=== PATIENT | female | born 1995 | race Caucasian/White ===

== ENCOUNTER 2025-01-30 22:41 | Emergency (ER) | payer MEDICAID, SELFPAY ==
--- OUTSIDE RECORDS SUMMARY | 2025-01-14 14:45 | XMS_ITS | Encounter Summary ---
Author Organization [facility] Address [address] [place] [address] Care Team Providers Care Sports Management Internship Name Role Phone Donya Carson MD Unavailable [phone] Ruben Case MD Unavailable [phone] Swathi Palmer MD Unavailable [phone] Regina Jones MD Primary Care Provid er Regina Jones MD Unavailable [phone] Reason for Visit * Reason Comments Follow Up Encounter Details Date Type Department Care Team (Late st Contact Info) Description 01/14/2025 2:45 PM CDT Office Visit [facility] [address] [place] [address] Ruben Case MD [address] [place] [address] Vaginal irritation (Primary Dx) Social History Tobacco Use Types Packs/Day Years Used Date Smoking Tobacco: Former Cigarettes 0.2 5 Vaping Device Passive Smoke Exposure: Never Smokeless Tobacco: Former Quit: 01/13/2017 Alcohol Use Standard Drinks/Week Comments Not Currently 0 (1 standard drink = 0.6 oz pur e alcohol) 5 drinks per year PHQ-2 Answer Date Recorded PHQ-2 Score 0 11/25/2024 Pinewood Depression Scale Answer Date Recorded Pinewood Depression Score 0 12/05/2018 Last EPDS Self Harm Result Not on file 12/05 Adolescent Education Answer Date Record ed Getting School Help Needed Not on file 03/10 Food Insecurity Answer Date Recorded Within the past 12 months, d id you worry that your food would run out before you got money to buy more? No 09/05/2024 Within the past 12 months, d id the food you bought just not last and you didn t have money to get more? No 09/05/2024 Housing Stability Answer Date Recorded Do you have housing? (Talisha g is defined as stable permanent housing and does not include staying outside in a car, in a tent, in an abandoned building, in an overnight long-term, or couch-surfing.) Yes 09/05/2024 Are you worried about losing your housing? No 09/05/2024 Financial Resource Strain Answer Date R ecorded Within the past 12 months, h ave you or your family members you live with been unable to get utilities (heat, electricity) when it was really needed? No 09/05/2024 Transportation Needs Answer Date Record ed Within the past 12 months, h as lack of transportation kept you from medical appointments, getting your medicines, non-medical meetings or appointments, work, or from getting things that you need? No 09/05/2024 Interpersonal Safety Answer Date Record ed Do you feel physically and e motionally safe where you currently live? Yes 09/05/2024 Within the past 12 months, h ave you been hit, slapped, kicked or otherwise physically hurt by someone? No 09/05/2024 Within the past 12 months, h ave you been humiliated or emotionally abused in other ways by your partner or ex-partner? 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 Not on file Not on file Not on file documented as of this encounter Last Filed Vital Signs Vital Sign Reading Time Taken Comments Blood Pressure 106/74 01/14/2025 2:28 PM CDT Pulse - - Temperature - - Respiratory Rate - - Oxygen Saturation - - Inhaled Oxygen Concentration - - Weight 69.4 kg (153 lb) 01/14/2025 2:28 PM CDT Height - - Body Mass Index 24.14 11/25/2024 11:13 AM CDT documented in this encounter Progress Notes * Ruben Case MD - 01/14/2025 2:45 PM CDT Chief Complaint Patient presents with Follow Up Subjective: 29-year-old G5, P3 here for evaluation of vaginal discharge and irregular cycles. She had a twin that unfortunately ended in August 2024 due to advanced cervical dilation and extreme prematurity at 19 weeks 5 days. They are hoping to conceive again. Her last menstrual period was somewhat atypical with 5 days of spotting followed by heavier bleeding which began December 30. She is wondering if we should check some hormone levels to determine whether she is ovulating again as they hope to conceive. She has also had some ongoing vaginal discharge and has a history of BV so would like this evaluated. REVIEW OF SYSTEMS: General: as above Health Maintenance Topic Date Due ASTHMA ACTION PLAN Never done YEARLY PREVENTIVE VISIT Never done PNEUMOCOCCAL VACCINE: PEDIATRICS (0 to 5 YEARS) AND AT-RISK PATIENTS (6 to 49 YEARS) (1 of 2 - PCV)Never done HEPATITIS B VACCINE (1 of 3 - 19+ 3-dose series) Never done COVID-19 VACCINE ( - season) Never done INFLUENZA VACCINE (1) 02/17/2025 ASTHMA CONTROL TEST 05/27/2025 PHQ-9 05/27/2025 PAP 06/26/2027 ADVANCE CARE PLANNING 11/26/2028 DTAP/TDAP/TD VACCINE (4 - Td or Tdap) 02/19/2030 ZOSTER VACCINE (1 of 2) 2046 HEPATITIS C SCREENING Completed HIV SCREENING Completed DEPRESSION ACTION PLAN Completed HPV VACCINE (No Doses Required) Completed MENINGITIS VACCINE Aged Out CHLAMYDIA SCREENING Discontinued Allergies Allergen Reactions Bees Anaphylaxis Latex Hives, Itching and Rash Objective: Vitals: BP 106/74 Wt 69.4 kg (153 lb) LMP 11/01/2024 BMI 24.14 kg/m?? BMI= Body mass index is 24.14 kg/m??. External genitalia without lesions. Vagina contains a somewhat watery discharge. Wet prep obtained and GC chlamydia PCR obtained. Cervix has a normal multiparous appearance. Assessment/Plan: 1. Vaginal irritation (Primary) Will check - Wet prep - Clinic Collect - NEISSERIA GONORRHOEA PCR - CHLAMYDIA TRACHOMATIS PCR - Follicle stimulating hormone; Future - Estradiol; Future - Progesterone; Future Some hormone levels to confirm ovulatory status Fahad Case MD documented in this encounter Nursing Notes * Nadeen Silva CMA - 01/14/2025 2:45 PM CDT Chief Complaint Patient presents with Follow Up initial BP 106/74 Wt 69.4 kg (153 lb) LMP 11/01/2024 BMI 24.14 kg/m?? Estimated body mass index is 24.14 kg/m?? as calculated from the following: Height as of 11/25/24: 1.695 m (5' 6.75). Weight as of this encounter: 69.4 kg (153 lb). BP completed using cuff size regular Nadeen Silva CMA on 01/14/2025 at 2:36 PM documented in this encounter Plan of Treatment Not on file documented as of this encounter Goals Goal Patient Goal Type Associated Problems Recent Progress Patient-Stated? Author FANNY ECC SURG ENROLL Care Plan MyC ECC SURG ENROLL No Aure Rodriguez documented as of this encounter Procedures Procedure Name Priority Date/Time Associated Diagnosis Comments PROGESTERONE Routine 01/14/2025 2:58 PM CDT Vaginal irritation FOLLICLE STIMULATING HORMONE Routine 01/14/2025 2:58 PM CDT Vaginal irritation ESTRADIOL Routine 01/14/2025 2:58 PM CDT Vaginal irritation WET PREPARATION Routine 01/14/2025 2:49 PM CDT Vaginal irritation NEISSERIA GONORRHOEAE PCR Routine 01/14/2025 2:49 PM CDT Vaginal irritation CHLAMYDIA TRACHOMATIS PCR Routine 01/14/2025 2:49 PM CDT Vaginal irritation documented in this encounter Results * Progesterone (01/14/2025 2:58 PM CDT) Progesterone 0.2 ng/mL 01/14/2025 9:29 PM CDT [facility] Comment: Healthy Postmenopausal Women: Postmenopause: <=0.1 ng/mL Healthy Women: 1st Trimester: 11.0-44.3 ng/mL 2nd Trimester: 25.4-83.4 ng/mL 3rd Trimester: 58.7-214.0 ng/mL Healthy Women Cycle Phase: Follicular: <0.1-0.2 ng/mL Ovulation: 0.1-4.1 ng/mL Luteal: 4.1-14.5 ng/mL Healthy Women Cycle Sub Phase: Early Follicular: <0.1-0.3 ng/mL Intermediate Follicular: <0.1-0.2 ng/mL Late Follicular: <0.1-0.2 ng/mL Ovulation: <0.1-2.4 ng/mL Early Luteal: 2.4-15.1 ng/mL Intermediate Luteal: 4.8-20.9 ng/mL Late Luteal: 0.5-13.5 ng/mL Blood BLOOD SPECIMEN / Unknown Venipuncture / Unknown 01/14/2025 2:58 PM CDT 01/14/2025 2:58 PM CDT us Ruben Case MD LAB - BLOOD ORDERABLES Final Result [facility] Core Lab [address] [facility], Room [address] [place] [phone] * Estradiol (01/14/2025 2:58 PM CDT) Estradiol 51 pg/mL 01/14/2025 9:29 PM CDT [facility] Comment: Healthy Men: 11.3-43.2 pg/mL Healthy Postmenopausal Women: Postmenopause: <5-138 pg/mL Healthy Women: 1st trimester: 154-3243 pg/mL 2nd trimester: 1561-56141 pg/mL 3rd trimester: 8525->58974 pg/mL Healthy Women Cycle Phase: Follicular: 30.9-90.4 pg/mL Ovulation: 60.4-533 pg/mL Luteal: 60.4-232 pg/mL Healthy Women Cycle Sub-Phase: Early Follicular: 20.5-62.8 pg/mL Intermediate Follicular: 26-79.8 pg/mL Late Follicular: 49.5-233 pg/mL Ovulation: 60.4-602 pg/mL Early Luteal: 51.1-179 pg/mL Intermediate Luteal: 66.5-305 pg/mL Late Luteal: 30.2-222 pg/mL Blood BLOOD SPECIMEN / Unknown Venipuncture / Unknown 01/14/2025 2:58 PM CDT 01/14/2025 2:58 PM CDT Ruben Case MD LAB - BLOOD ORDERABLES Final Result Performing Organization Address City/[facility]/ZIP Co de Phone Number LABORATORY [facility] [place] Core Lab [address] [facility], [address] [place] [phone] * Follicle stimulating hormone (01/14/2025 2:58 PM CDT) FSH 5.4 mIU/mL 01/14/2025 9:29 PM CDT LABORATORY Comment: 19 years and older: Follicular phase: 3.5-12.5 mIU/mL Ovulation phase: 4.7-21.5 mIU/mL Luteal phase: 1.7-7.7 mIU/mL Postmenopause: 25.8-134.8 mIU/mL Blood BLOOD SPECIMEN / Unknown Venipuncture / Unknown 01/14/2025 2:58 PM CDT 01/14/2025 2:58 PM CDT Ruben Case MD LAB - BLOOD ORDERABLES Final Result LABORATORY [facility] [place] Core Lab [address] [facility], [address] [phone] * CHLAMYDIA TRACHOMATIS PCR (01/14/2025 2:49 PM CDT) Chlamydia trachomatis Negative Negative 01/15/2025 11:53 AM CDT [facility] Comment:A negative result by chief of anesthesiology mediated amplification does not preclude the presence of C. trachomatis infection because results are dependent on proper and adequate collection, absence of inhibitors and sufficient rRNA to be detected. Chlamydia trachomatis Specimen Source Cervix 01/15/2025 11:53 AM CDT [facility] Swab CERVIX UTERI STRUCTURE / Unknown Non-blood Collection / Unknown 01/14/2025 2:49 PM CDT 01/14/2025 2:52 PM CDT Ruben Case MD LAB - MICRO GENERAL OR DERABLES Final Result Performing Organization Address [facility] de Phone Number U ID LABORATORY [facility] Inf. Diseases Diag. Lab [address] [facility], [address] [place] [phone] [place] [address] * NEISSERIA GONORRHOEA PCR (01/14/2025 2:49 PM CDT) [facility] Neisseria gonorrhoeae Negative Negative 01/15/2025 11:53 AM CDT [facility] Comment:Negative for N. gono rrhoeae rRNA by chief of anesthesiology mediated amplification. A negative result by chief of anesthesiology mediated amplification does not preclude the presence of C. trachomatis infection because results are dependent on proper and adequate collection, absence of inhibitors and sufficient rRNA to be detected. Neisseria gonorrhoeae Specimen Source Cervix 01/15/2025 11:53 AM CDT [facility] Swab CERVIX UTERI STRUCTURE / Unknown Non-blood Collection / Unknown 01/14/2025 2:49 PM CDT 01/14/2025 2:52 PM CDT Ruben Case MD LAB - MICRO GENERAL OR DERABLES Final Result Performing Organization Address City/[facility] Co de Phone Number ID LABORATORY [facility] Inf. Diseases Diag. Lab [address] [facility], [address] [place] [phone] [place] [address] * (ABNORMAL) Wet prep - Clinic Collect (01/14/2025 2:49 PM CDT) Trichomonas Absent Absent MALICK 01/14/2025 3:03 PM CDT [facility] Yeast Absent Absent MALICK 01/14/2025 3:03 PM CDT [facility] Clue Cells Absent Absent MALICK 01/14/2025 3:03 PM CDT [facility] WBCs/high power field 2+(A) None MALICK 01/14/2025 3:03 PM CDT [facility] Swab VAGINAL STRUCTURE / Unknown Non-blood Collection / Unknown 01/14/2025 2:49 PM CDT 01/14/2025 2:52 PM CDT Ruben Case MD LAB - MICRO GENERAL OR DERABLES Final Result [place] [facility] [place] [facility] [address], [address] [place] [address] documented in this encounter Visit Diagnoses Diagnosis Vaginal irritation- Primary Unspecified noninflammatory disorder of vagina documented in this encounter Additional Health Concerns Active Problems Noted Date Diagnosed Date MyC ECC SURG ENROLL 11/24/2023 Assessment Noted Time PHQ-9 Depression Total Score: 0 11/26/19 25 11:19 AM CDT documented as of this encounter Care Teams Sports Management Internship Relationship Specialty [place] [address] [place] [address] PCP - General Internal Medicine 11/25/24 Donya Carson MD [address] [place] [address] machine driller 11/01/23 Ruben Case MD [address] [place] [address] Assigned OBGYN Provider 12/10/23 Swathi Palmer MD [address] [place] [address] Assigned Pediatric Specialist Provider 08/11/24 Regina Jones MD [address] [place] [address] Assigned PCP 12/09/24 documented as of this encounter
--- OUTSIDE RECORDS SUMMARY | 2025-01-30 22:43 | XMS_ITS | Continuity of Care Document ---
Author Name [facility] Organization [facility] Care Team Providers Care Supervisor Polishing Name Role Phone [facility] Unavailable Unavailable Problems Combined list of problems from Department of Defense and Veterans Affairs facilities. It does not include entries that were removed or entered in error. Problem Status Onset Date Problem Type Date of Resolution Comme nts Source Adjustment disorder with other symptoms Active Condition [facility] ALLERGIC RHINITIS Active Condition DoD ASTIGMATISM - REGULAR Active Condition DoD Allergies, Adverse Reactions, Alerts Combined list of allergies from Department of Defense and Veterans Affairs facilities. It does not include entries that were removed or entered in error. Substance Category Reaction Severity Reaction type Status Date Reported Comments Source OTHER {Cla } Drug allergy (disorder) Anaphylaxis active 10/09/2014 [facility] [place] Encounters Combined list of: 1) Encounters from Department of Veterans Affairs facilities going backup to the last 18 months, not all [place] inpatient encounters are included; 2) Encounters from the Department of Defense facilities going backup to 280 months. Location Location Details Encounter Type Encounter Number Reason For Visit Attending Provider ADM Date DC Date Status Disposition Source [place] [facility] [place] OUTPATIENT [id number] faintin g x3 days MELODY CHRIS 09/08 Released w/o Limitations [facility] [place] [facility] [facility] [place] [id number] F/U from previou s appt MELODY CHRIS 09/10 Released w/o Limitations [facility] [place] [facility] [place] [id number] pink eye F/U SARAH VENTURA 09/16 Released w/o Limitations [facility] [place] [facility] [place] [place] [id number] routine UPSURYA GIL 10/09 Released w/o Limitations [place] [facility] [place] [facility] [place] [id number] Notes Entered by: Ashvin GLAE 23 Oct 2014 1143 ------- ------- ------- ------- -- mental health MAGDA Anderson 10/23 Released w/o Limitations [place] [facility] [place] [facility] [place] [facility] [id number] Notes Entered by: Pérez LIU 29 Oct 2014 1409 ------- ------- ------- ------- -- F/U ALINA THOMAS 10/29 Released w/o Limitations [place] [facility] [place] [facility] [facility] [place] [id number] headach e,cough , nasal dischar ge x3 weeks SARAH VENTURA 12/03 Released w/o Limitations [place] [facility] [place] [facility] [facility] [place] [facility] TELE CONSULT [id number] Notes Entered by: MALICK RYAN 05 Mar 2015 1040 ------- ------- ------- ------- -- Out of state Urgent Care VIV Clay 03/05 Referred for Appointment [place] [facility] [facility] [place] [id number] F/U SARAH VENTURA 05/12 Released w/o Limitations [place] [facility] [place] [facility] [facility] [place] [id number] Notes Entered by: Eren THOMAS 12 May 2015 1536 ------- ------- ------- ------- -- Check ALINA THOMAS 05/12 Released w/o Limitations [place] [facility] [facility] [place] TELE CONS[place] [id number] Notes Entered by: STACY NICOLE 13 May 2015 0838 ------- ------- ------- ------- -- VIV [place] 05/13 [place] for Appointment [place] [facility] [place] [facility] [facility] [place] TELE CONS[place] [id number] Notes Entered by: STACY NICOLE 19 May 2015 1344 ------- ------- ------- ------- -- VIV [place] 05/19 [place] for Appointment [place] [facility] [facility] [place] [id number] N/V/D JACOB ZEPEDA 05/25 Released w/o Limitations [place] [facility] [place] [facility] [place] [id number] f/u nvd JACOB ZEPEDA 05/26 Released w/o Limitations [place] [facility] [place] Procedures Combined list of: 1) Procedures from Department of Veterans Affairs facilities going back up to thelast 18 months, not all VA non-surgical procedures are included; 2) All procedures from the Department of Defense facilities. Procedure Procedure Type Code Date Perfomer Comments José Antonio guzman Dr. Supervised Injection Intramuscular Supervised Injection Intramuscular 51241 ABDOUL MILAN Ceftriaxone 250 MG Reconstituted with 1cc Lidicaine w/out Epi. Given IM in Left Glute with 25 Guage. [id number] Puneet Manrique Supervised Injection Intravenous Supervised Injection Intravenous 20063 JACOB CHAVIRA Intravenous Catheter Placement Intravenous Catheter Placement 04512 JACOB ZEPEDA [facility] Psychiatric Therapy Individual Approximately 20-30 Minutes ALINA THOMAS [facility] Psychiatric Therapy Individual Approximately 20-30 Minutes ALINA THOMAS [facility] Ophthalmological New Patient Start Comprehensive Care Ophthalmological New Patient Start Comprehensive Care [address] SURYA HERNANDEZ [facility] Determination Of Refractive State Determination Of Refractive State [address] SURYA HERNANDEZ [facility] Social History Combined list of available smoking, tobacco, and other social history from Department of Defense and Veterans Affairs facilities. Social History Type Response Date Comment [facility] e This section is an empty social history section. DoD
--- OUTSIDE RECORDS SUMMARY | 2025-01-30 22:43 | XMS_ITS | Continuity of Care Document ---
Author Name [facility] Organization [facility] Care Team Providers Care Mba Internship Name Role Phone [facility] Unavailable Unavailable Problems Combined list of problems from Department of Defense and Veterans Affairs facilities. It does not include entries that were removed or entered in error. Problem Status Onset Date Problem Type Date of Resolution Comme nts Source Adjustment disorder with other symptoms Active Condition [facility] ALLERGIC RHINITIS Active Condition DoD ASTIGMATISM - [...] to the last 18 months, not all [place] inpatient encounters are included; 2) Encounters from the Department of Defense facilities going backup to 280 months. Location Location Details Encounter Type Encounter Number Reason For Visit Attending Provider ADM Date DC Date Status Disposition Source [facility] [place] [facility] [place] [id number] faintin g x3 days MELODY CHRIS 09/08 Released w/o Limitations [place] [facility] [place] [facility] [facility] [place] [facility] [place] [facility] [place] [id number] F/U from previou s appt MELODY CHRIS 09/10 Released w/o Limitations [place] [facility] [place] [facility] [facility] [place] [facility] [id number] pink eye F/U SARAH VENTURA 09/16 Released w/o Limitations [place] [facility] [place] [facility] [facility] [place] [facility] [place] [place] [id number] routine UPSURYA GIL 10/09 Released w/o Limitations [place] [facility] [place] [facility] [place] [facility] [place] [facility] [id number] Notes Entered by: Ashvin GALE 23 Oct 2014 1143 ------- ------- ------- ------- -- mental health MAGDA Anderson 10/23 Released w/o Limitations [place] [facility] [place] [facility] [place] [facility] [id number] Notes Entered by: Pérez LIU 29 Oct 2014 1409 ------- ------- ------- ------- -- F/U ALINA THOMAS 10/29 Released w/o Limitations [place] [facility] [place] [facility] [place] [facility] [place] [facility] [id number] headach e,cough , nasal dischar ge x3 weeks SARAH VENTURA 12/03 Released w/o Limitations [place] [facility] [place] [facility] [place] [facility] [place] [facility] TELE CONS[place] [id number] Notes Entered by: MALICK RYAN 05 Mar 2015 1040 ------- ------- ------- ------- -- Out of state Urgent Care VIV Clay 03/05 [place] for Appointment [place] [facility] [place] [facility] [facility] [place] [facility] [id number] F/U SARAH VENTURA 05/12 Released w/o Limitations [place] [facility] [place] [facility] [place] [facility] [place] [facility] [id number] Notes Entered by: Eren THOMAS 12 May 2015 1536 ------- ------- ------- ------- -- Check ALINA THOMAS 05/12 Released [place] Limitations [place] [facility] [place] [facility] [place] [facility] [place] [facility] [place] [facility]LE CONS[place] [id number] Notes Entered by: STACY NICOLE 13 May 2015 0838 ------- ------- ------- ------- -- VIV Clay 05/13 [place] Appoint[place] [facility] [place] [facility] [facility] [place] [facility]LE [place] [id number] Notes Entered by: STACY NICOLE 19 May 2015 1344 ------- ------- ------- ------- -- VIV Clay 05/19 [place] for Appoint[place] [facility] [place] [facility] [facility] [place] [facility] [place] [facility] [id number] N/V/D JACOB ZEPEDA 05/25 [place]ased w/[place] Limitations [place] [facility] [place] [facility] [facility] [place] [facility] [id number] f/u nvd JACOB ZEPEDA 05/26 Released w/o Limitations [place] [facility] [place] [facility] Procedures Combined list of: 1) Procedures from Department of Veterans Affairs facilities going back up to thelast 18 months, not all VA non-surgical procedures are included; 2) All procedures from the Department of Defense facilities. Procedure Procedure Type Code Date Perfomer Comments José Antonio guzman Dr. Supervised Injection Intramuscular Supervised Injection Intramuscular 69573 ABDOUL MILAN Ceftriaxone 250 MG Reconstituted with 1cc Lidicaine w/out Epi. Given IM in Left Glute with 25 Guage. [id number] Puneet Manrique Supervised Injection Intravenous Supervised Injection Intravenous 75587 JACOB CHAVIRA Intravenous Catheter Placement Intravenous Catheter Placement 64874 JACOB ZEPEDA [facility] Psychiatric Therapy Individual Approximately 20-30 Minutes ALINA THOMAS [facility] Psychiatric Therapy Individual Approximately 20-30 Minutes ALINA THOMAS [facility] Ophthalmological New Patient Start Comprehensive Care Ophthalmological New Patient Start Comprehensive Care [address] SURYA HERNANDEZ [facility] Determination Of Refractive State Determination Of Refractive State [address] SURYA HERNANDEZ [facility] Social History Combined list of available smoking, tobacco, and other social history from Department of Defense and Veterans Affairs facilities. Social History Type Response Date Comment [facility] e This section is an empty social history section. DoD
--- OUTSIDE RECORDS SUMMARY | 2025-01-30 22:44 | XMS_ITS | Encounter Summary ---
Author Organization [place] Address [address] [facility] [place] [address] Care Team Providers Care Medical Liaison Name Role Phone Donya Carson MD Unavailable [phone] Ruben Case MD Unavailable [phone] Swathi Palmer MD Unavailable [phone] Regina Jones MD Primary Care Provid er Regina Jones MD Unavailable [phone] Encounter Details Date Type Department Care Team (Late st Contact Info) Description 01/14/2025 Results Follow-Up [facility] Women's [address] [place] [address] Ruben Case MD [address] [place], [place] [address] Subj: Message about your results Social History Tobacco Use Types Packs/Day Years Used Date Smoking Tobacco: Former Cigarettes 0.2 5 Vaping Device Passive Smoke Exposure: Never Smokeless Tobacco: Former Quit: 01/13/2017 Alcohol Use Standard Drinks/Week Comments Not Currently 0 (1 standard drink = 0.6 oz pur e alcohol) 5 drinks per year PHQ-2 Answer Date Recorded PHQ-2 Score 0 11/25/2024 [place] Depression Scale Answer Date Recorded [place] Depression Score 0 12/05/2018 Last EPDS Self [...] Date Recorded Do you have housing? 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 Author MYC ECC SURG ENROLL Care Plan MyC ECC SURG ENROLL No Aure Rodriguez documented as of this encounter Visit Diagnoses Not on filedocumented in this encounter Additional Health Concerns Active Problems Noted Date Diagnosed Date MyC ECC SURG ENROLL 11/24/2023 Assessment Noted Time PHQ-9 Depression Total Score: 0 11/26/19 11:19 AM CDT documented as of this encounter Care Teams Medical Liaison Relationship Specialty Start Date End Date Regina Jones MD [address] [place] [address] PCP - General Internal Medicine 11/25/24 Donya Carson MD [address] [place] [address] tax revenue officer 11/01/23 Ruben Case MD [address] [place] [address] Assigned OBGYN Provider 12/10/23 Swathi Palmer MD [address] [place] [address] Assigned Pediatric Specialist Provider 08/11/24 [place] [address] [place] [address] Assigned PCP 12/09/24 documented as of this encounter
--- OUTSIDE RECORDS SUMMARY | 2025-01-30 22:44 | XMS_ITS | Encounter Summary ---
Author Organization [place] Address [address] [facility] [place] [address] Care Team Providers Care Public Service Officer Name Role Phone Donya Carson MD Unavailable [phone] Ruben Case MD Unavailable + [phone] Swathi Palmer MD Unavailable [phone] Regina Jones MD Primary Care Provid er Regina Jones MD Unavailable + [phone] Reason for Visit * Reason Onset Date Comments Forms 01/08/2025 Symmetry: Plan o f Care Encounter Details Date Type Department Care Team (Late st Contact Info) Description 01/08/[address] [place] [address] Regina Jones MD [address] [place] [id number] Forms (Symmetry: Plan of Care) Social History Tobacco Use Types Packs/Day Years Used Date Smoking Tobacco: Former Cigarettes 0.2 5 Vaping Device Passive Smoke Exposure: Never Smokeless Tobacco: Former Quit: 01/13/2017 Alcohol Use Standard Drinks/Week Comments Not Currently 0 (1 standard drink = 0.6 oz pur e alcohol) 5 drinks per year PHQ-2 Answer Date Recorded PHQ-2 Score 0 11/25/2024 [place] Depression Scale Answer Date Recorded [place] Depression Score 0 12/05/2018 Last EPDS Self [...] Answer Date Recorded Do you have housing? 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 Thank you kindly, Zia Valdez Securities Settlement Processor * Telephone Encounter - Briseyda Travis NP - 01/10/2025 9:34 AM CDT Signed in outbasket * Telephone Encounter - Zaira Camarillo - 01/09/2025 10:09 AM CDT Form is on the provider's desk for review Zaira Camarillo on 01/09/2025 at 10:09 AM * Telephone Encounter - Shalini Parker - 01/08/2025 7:32 PM CDT Order/Referral Request Who is requesting: SYMMETRY CHIROPRACTIC Orders being requested: YES Reason service is needed/diagnosis: SEE ORDER When are orders needed by: KRISTI Has this been discussed with Provider: N/A Does patient have a preference on a Group/Provider/Facility? UNKNOWN Does patient have an appointment scheduled?: UNKNOWN Where to send orders: Fax Could we send this information to you in [facility] or would you prefer to receive a phone call?: No preference Okay to leave a detailed message?: N/A at Other phone number: FORM NOT FROM PATIENT documented in this encounter Plan of Treatment [...] documented as of this encounter Care Teams Public Service Officer Relationship Specialty Start Date End Date Regina Jones MD [address] [place] [place] [address] PCP - General Internal Medicine 11/25/24 Donya Carson MD [address] [place] [address] harness mender 11/01/23 Ruben Case MD [address] [place] [address] Assigned OBGYN Provider 12/10/23 Swathi Palmer MD [address], [place] [address] Assigned Pediatric Specialist Provider 08/11/24 Regina Jones MD [address] [place] [address] Assigned PCP 12/09/24 documented as of this encounter
--- OUTSIDE RECORDS SUMMARY | 2025-01-30 22:44 | XMS_ITS | Encounter Summary ---
Author Organization [place] Address [address] [facility] [place] [address] Care Team Providers Care Rounding Machine Operator Name Role Phone Donya Carson MD Unavailable [phone] Vicente Holder MD Primary Care Provider [phone] Ruben Case MD Unavailable + [phone] Corey Esqueda PA-C Unavailable [phone] Swathi Palmer MD Unavailable [phone] Regina Jones MD Primary Care Provid er Regina Jones MD Unavailable [phone] Encounter Details Date Type Department Care Team (Late st Contact Info) Description 10/04/2024 MyC Medical Advice [facility] Women's [facility] [address] [place] [address] Caleb Diez MD [address] [place] [address] Social History Tobacco Use Types Packs/Day Years Used Date Smoking Tobacco: Former Cigarettes 0.2 5 Vaping Device Passive Smoke Exposure: Never Smokeless Tobacco: Former Quit: 01/13/2017 Alcohol Use Standard Drinks/Week Comments No 0 (1 standard drink = 0.6 oz pur e alcohol) PHQ-2 Answer Date Recorded PHQ-2 Score 0 06/26/2024 [place] Depression Scale Answer Date Recorded [place] Depression Score 0 12/05/2018 Last EPDS Self [...] Answer Date Recorded Do you have housing? (Housin g is defined as stable permanent housing and does not include staying outside in a car, in a tent, in an abandoned building, in an overnight senior living, or couch-surfing.) Yes 09/05/2024 Are you worried [...] on file Legal Sex Female 10:13 AM HORN PLAYER Gender Identity Not on file Sexual Orientation Not on file Occupation Industry Job Start Date Job End Date [employer] Not on file Not on file Not [...] Assessment Noted Time PHQ-9 Depression Total Score: 2 06/26/19 25 10:21 AM HORN PLAYER documented as of this encounter Care Teams Rounding Machine Operator Relationship Specialty Start Date End Date Vicente Holder MD [address] [facility] [address] [place] [address] PCP - General manager ui 11/28/23 11/24/24 Regina Jones MD [address] [place] [phone] PCP - General Internal Medicine 11/25/24 Donya Carson MD [address] [place] [address] manager ui 11/01/23 Ruben Case MD [address] [place] [address] Assigned OBGYN Provider 12/10/23 Corey Esqueda PA-C [address] [facility] [address] [place], [place] [id number] Assigned PCP 01/09/24 12/08/24 Swathi Palmer MD [address], [place] [address] Assigned Pediatric Specialist Provider 08/11/24 Regina Jones MD [address] [place] [address] [phone] Assigned PCP 12/09/24 documented as of this encounter
--- OUTSIDE RECORDS SUMMARY | 2025-01-30 22:44 | XMS_ITS | Encounter Summary ---
Author Organization [place] Address [address] [place] [address] Care Team Providers Care Yard Brakeman Name Role Phone Donya Carson MD Unavailable [phone] Vicente Holder MD Primary Care Provider [phone] tier[facility] MD Unavailable + [phone] Corey Esqueda PA-C Unavailable [phone] Swathi Palmer MD Unavailable [phone] Regina Jones MD Primary Care Provid er Regina Jones MD Unavailable + [phone] Encounter Details Date Type Department Care Team (Late st Contact Info) Description 06/05/2024 [facility] Women[facility] [address] [place] [address] Danielle Gonsalez, RN Social History Tobacco Use Types Packs/Day Years Used Date Smoking Tobacco: Former Cigarettes 0.2 5 Vaping Device Smokeless Tobacco: Former Quit: 01/13/2017 Alcohol Use Standard Drinks/Week Comments No 0 (1 standard drink = 0.6 oz pur e alcohol) PHQ-2 Answer Date Recorded PHQ-2 Score 2 11/27/2023 [place] Depression Scale Answer Date Recorded [place] Depression Score 0 12/05/2018 Last EPDS Self Harm Result Not on file 12/05 Adolescent Education Answer Date Record ed Getting School Help Needed Not on file 03/10 Food Insecurity Answer Date Recorded Within the past 12 months, d id you worry that your food would run out before you got money to buy more? No 11/27/2023 Within the past 12 months, d id the food you bought just not last and you didn t have money to get more? No 11/27/2023 Housing Stability Answer Date Recorded Do you have housing? (Talisha stout is defined as stable permanent housing and does not include staying outside in a car, in a tent, in an abandoned building, in an overnight longterm, or couch-surfing.) Yes 11/27/2023 Are you worried about losing your housing? No 11/27/2023 Financial Resource Strain Answer Date R ecorded Within the past 12 months, h ave you or your family members you live with been unable to get utilities (heat, electricity) when it was really needed? No 11/27/2023 Transportation Needs Answer Date Record ed Within the past 12 months, h as lack of transportation kept you from medical appointments, getting your medicines, non-medical meetings or appointments, work, or from getting things that you need? No 11/27/2023 Interpersonal Safety Answer Date Record ed Do you feel physically and e motionally safe where you currently live? Yes 11/27/2023 Within the past 12 months, h ave you been hit, slapped, kicked or otherwise physically hurt by someone? No 11/27/2023 Within the past 12 months, h ave you been humiliated or emotionally abused in other ways by your partner or ex-partner? 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 Not on [...] Diagnosed Date MyC ECC SURG ENROLL 11/24/2023 Infection Onset Date Last Indicated Resolved Time Rule Out COVID-19 07/30/2024 07/30/2024 07/30/2024 7:44 PM IRONER SOCK Influenza 07/30/2024 07/30/2024 08/06/2024 11:3 9 PM IRONER SOCK Assessment Noted Time PHQ-9 Depression Total Score: 3 11/27/19 10:34 AM CDT documented as of this encounter Care Teams Yard Brakeman Relationship Specialty Start Date End Date Vicente Holder MD [address] [facility] 100 [place] [address] PCP - General administration professional 11/28/23 11/24/24 Regina Jones MD [address] [place] [phone] PCP - General Internal Medicine 11/25/24 Donya Carson MD [address] [place] [address] administration professional 11/01/23 Ruben Case MD [address] [place] [address] Assigned OBGYN Provider 12/10/23 Corey Esqueda PA-C [address] [facility] 200 [place] [address] Assigned PCP 01/09/24 12/08/24 Swathi Palmer MD [address] [place] [address] Assigned Pediatric Specialist Provider 08/11/24 Regina Jones MD [address] [place] [address] Assigned PCP 12/09/24 documented as of this encounter
--- OUTSIDE RECORDS SUMMARY | 2025-01-30 22:44 | XMS_ITS | Encounter Summary ---
Author Organization [place] Address [address] [place] [address] Care Team Providers Care Graphic User Interface Designer Name Role Phone Donya Carson MD Unavailable [phone] Vicente Holder MD Primary Care Provider [phone] Ruben Case MD Unavailable + [phone] Corey Esqueda PA-C Unavailable [phone] Swathi Palmer MD Unavailable [phone] Regina Jones MD Primary Care Provid er Regina Jones MD Unavailable + [phone] Encounter Details Date Type Department Care Team (Late st Contact Info) Description 07/17/2024 External Order Results [facility] [address] [place] [address] Outside, Provider Social History Tobacco Use Types Packs/Day Years Used Date Smoking Tobacco: Former Cigarettes 0.2 5 Vaping Device Smokeless Tobacco: Former Quit: 01/13/2017 Alcohol Use Standard Drinks/Week Comments No 0 (1 standard drink = 0.6 oz pur e alcohol) PHQ-2 Answer Date Recorded PHQ-2 Score 0 06/26/2024 [place] Depression Scale Answer Date Recorded [place] Depression Score 0 12/05/2018 Last EPDS Self [...] in an abandoned building, in an overnight skilled nursing, or couch-surfing.) Yes 11/27/2023 Are you worried [...] on file Legal Sex Female 10:13 AM SAMPLER TESTER Gender Identity Not on file Sexual Orientation Not on file 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 on [...] Out COVID-19 07/30/2024 07/30/2024 07/30/2024 7:44 PM SAMPLER TESTER Influenza 07/30/2024 07/30/2024 08/06/2024 11:3 9 PM SAMPLER TESTER Assessment Noted Time PHQ-9 Depression Total Score: 2 06/26/19 25 10:21 AM SAMPLER TESTER documented as of this encounter Care Teams Graphic User Interface Designer Relationship Specialty Start Date End Date Vicente Holder MD [address] [facility] [address] [place] [address] PCP - General child care education coordinator 11/28/23 11/24/24 Regina Jones MD [address] [place] [id number] PCP - General Internal Medicine 11/25/24 Donya Carson MD [address] [place] [address] child care education coordinator 11/01/23 Ruben Case MD [address] [place] [address] Assigned OBGYN Provider 12/10/23 Corey Esqueda PA-C [address] [facility] 200 [place] [address] Assigned PCP 01/09/24 12/08/24 Swathi Palmer MD [address] [place] [address] Assigned Pediatric Specialist Provider 08/11/24 Regina Jones MD [address] [place] [address] Assigned PCP 12/09/24 documented as of this encounter
--- OUTSIDE RECORDS SUMMARY | 2025-01-30 22:44 | XMS_ITS | Encounter Summary ---
Author Organization [place] Address [address] [facility] [place] [address] Care Team Providers Care Launch Commander Harbor Police Name Role Phone Donya Carson MD Unavailable [phone] Ruben Case MD Unavailable [phone] Swathi Palmer MD Unavailable [phone] Regina Jones MD Primary Care Provid er Regina Jones MD Unavailable [phone] Encounter Details Date Type Department Care Team (Latest Contact Info) Description 01/14/2025 Travel Social History Tobacco Use Types Packs/Day Years Used Date Smoking Tobacco: Former Cigarettes 0.2 5 Vaping Device Passive Smoke Exposure: Never Smokeless Tobacco: Former Quit: 01/13/2017 Alcohol Use Standard Drinks/Week Comments Not Currently 0 (1 standard drink = 0.6 oz pur e alcohol) 5 drinks per year PHQ-2 Answer Date Recorded PHQ-2 Score 0 11/25/2024 [place] Depression Scale Answer Date Recorded [place] Depression Score 0 12/05/2018 Last EPDS Self [...] in an abandoned building, in an overnight halfway, or couch-surfing.) Yes 09/05/2024 Are you worried [...] on file Legal 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 Female 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 Gender Identity Not on file Sexual Orientation Not on file 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
--- OUTSIDE RECORDS SUMMARY | 2025-01-30 22:44 | XMS_ITS | Encounter Summary ---
Author Organization [place] Address [address] [facility] [place] [address] Care Team Providers Care Field Hockey Coach Name Role Phone Polina Monroy DO Primary Care Provider [phone] Nell Stoll RN Unavailable Unavailable Kimmie Earl MD Unavailable [phone] Nadeen Light NP Unavailable [phone] Kimmie Earl MD Unavailable [phone] Polina Monroy DO Unavailable [phone] Paola BlairC Unavailable [phone] Vicente Holder MD Unavailable [phone] oDnya Carson MD Unavailable [phone] Vicente Holder MD Primary Care Provider + [phone] Ruben Case MD Unavailable [phone] Corey Esqueda PA-C Unavailable [phone] Swathi Palmer MD Unavailable [phone] Regina Jones MD Primary Care Provid er Regina Jones MD Unavailable + [phone] Reason for Referral * - Closed Specialty Diagnoses / Procedures Referred By Dwight t Referred To Contact Diagnoses Encounter for preconception consultation Polina Monroy DO Phone: tel: fax: Referral ID Status Reason Start Date Expiration Date Visits Re quested Visits Authorized [id number] Closed 12/12/2017 12/12/2018 1 1 Question Answer MFM Consult Yes - history of stilbirth 38 6/7 weeks Comments In cc Encounter Details Date Type Department Care Team (Late st Contact Info) Description 12/12/2017 Orders Only [facility] [place] [address] [place] [address] Polina Monroy DO [address] [facility] [address] [place] [address] Encounter for preconception consultation (Primary Dx) Social History Tobacco Use Types Packs/Day Years Used Date Smoking Tobacco: Former Cigarettes 0.3 5 Smokeless Tobacco: Former Quit: 01/13/2017 Alcohol Use Standard Drinks/Week Comments Yes 0 (1 standard drink = 0.6 oz pur e alcohol) rare use, 4 shots WOOD SHOP TEACHER 08/16/17 Comments No Sex and Gender Information Value Date Recorded Sex Assigned at Not on file Legal Sex Female 10:13 AM CLASSIFICATION CLERK Gender Identity Not on file Sexual Orientation Not on file documented as of this encounter Plan of Treatment Scheduled Referrals Name Type Priority Associated Diagnoses Orde r Schedule MFM Office Visit Referral Routine Encounter for preconception consultation 1 Occurrences starting 12/12/2017 until 12/12/2018 documented as of this encounter Visit Diagnoses Diagnosis Encounter for preconception consultation- Primary documented in this encounter Additional Health Concerns Infection Onset Date Last Indicated Resolved Time Rule Out COVID-19 07/30/2024 07/30/2024 07/30/2024 7:44 PM CLASSIFICATION CLERK Influenza 07/30/2024 07/30/2024 08/06/2024 11:3 9 PM CLASSIFICATION CLERK Assessment Noted Time PHQ-9 Depression Total Score: 9 11/30/19 18 7:15 AM CDT documented as of this encounter Care Teams Field Hockey Coach Relationship Specialty Start Date End Date Polina Monroy DO PCP - General route vending machine servicer 05/29/17 11/27/23 [place] [address] [place] [address] PCP - Assigned PCP 04/22/18 08/21/18 Nadeen Light, JAJA [facility] [address] [place] [address] PCP - Assigned PCP 09/17/17 04/21/18 Vicente Holder MD [address] [address] PCP - General route vending machine servicer 11/28/23 11/24/24 Regina Jones MD [address] [place] [address] PCP - General Internal Medicine 11/25/24 Nell Stoll, [facility] Interventional Radiologist Primary Care - CC 12/26/17 [place] [address] [place] [address] Assigned PCP 04/22/18 04/17/21 Polina Monroy DO [address] [address] Assigned OBGYN Provider 04/10/20 Paola Blair PA-C [address] [address] Assigned Surgical Provider 05/09/21 10/28/22 Vicente Holder MD [address] [facility] [address] [place] [address] Assigned OBGYN Provider 01/29/22 Donya Carson MD [address] [place] [address] route vending machine servicer 11/01/23 Ruben Case MD [address] [place] [address] Assigned OBGYN Provider 12/10/23 Corey Esqueda PA-C [address] [facility] 200 [place] [address] Assigned PCP 01/09/24 12/08/24 Swathi Palmer MD [address], [place] [address] Assigned Pediatric Specialist Provider 08/11/24 Regina Jones MD [address] [place] [address] Assigned PCP 12/09/24 documented as of this encounter
--- OUTSIDE RECORDS SUMMARY | 2025-01-30 22:44 | XMS_ITS | Encounter Summary ---
Author Organization [place] Address [address] [place], [place] [address]. [place] [address] Care Team Providers Care Strategic Business Development Name Role Phone Polina Monroy DO Primary Care Provider [phone] Nell Stoll RN Unavailable Unavailable Kimmie Earl MD Unavailable +[phone] Nadeen Light NP Unavailable [phone] Kimmie Earl MD Unavailable [phone] Polina Monroy DO Unavailable +[phone] Paola BlairC Unavailable Vicente Holder MD Unavailable [phone] Donya Carson MD Unavailable [phone] Vicente Holder MD Primary Care Provider [phone] Ruben Case MD Unavailable [phone] Corey EsquedaC Unavailable +[phone] Swathi Palmer MD Unavailable +[phone] Regina Jones MD Primary Care Provid er Regina Jones MD Unavailable + [phone] Encounter Details Date Type Department Care Team (Late st Contact Info) Description 12/27/2017 [facility] [address] [place] [address] Nadeen Light NP [address] [place] [address] Social History Tobacco Use Types Packs/Day Years Used Date Smoking Tobacco: Former Cigarettes 0.3 5 Smokeless Tobacco: Former Quit: 01/13/2017 Alcohol Use Standard Drinks/Week Comments Yes 0 (1 standard drink = 0.6 oz pur e alcohol) rare use, 4 shots RETAIL AND PROMOTIONS COORDINATOR 08/16/17 Comments No Sex and Gender Information Value Date Recorded Sex Assigned at Not on file Legal Sex Female 10:13 AM PLASTICS TOOLING ENGINEER Gender Identity Not on file Sexual Orientation Not on file documented as of this encounter Plan of Treatment Not on file documented as of this encounter Visit Diagnoses Not on filedocumented in this encounter Additional Health Concerns Infection Onset Date Last Indicated Resolved Time Rule Out COVID-19 07/30/2024 07/30/2024 07/30/2024 7:44 PM PLASTICS TOOLING ENGINEER Influenza 07/30/2024 07/30/2024 08/06/2024 11:3 9 PM PLASTICS TOOLING ENGINEER Assessment Noted Time PHQ-9 Depression Total Score: 9 12/28/19 18 7:11 AM CDT documented as of this encounter Care Teams Strategic Business Development Relationship Specialty Start Date End Date Polina Monroy DO PCP - General regional refrigerated cdl truck driver 05/29/17 11/27/23 [place] [address] [place] [address] PCP - Assigned PCP 04/22/18 08/21/18 Nadeen Light NP [address] [place] [address] PCP - Assigned PCP 09/17/17 04/21/18 Vicente Holder MD [facility] [address] [facility] [address] [place] [address] PCP - General regional refrigerated cdl truck driver 11/28/23 11/24/24 Regina Jones MD [address] [place] [address] PCP - General Internal Medicine 11/25/24 Nell Stoll, [facility] Department Battalion Chief Primary Care - CC 12/26/17 [place] [address] [place] [address] Assigned PCP 04/22/18 04/17/21 Polina Monroy DO [address] [address] Assigned OBGYN Provider 04/10/20 Paola Blair PA-C [address] [facility] [address] [place] [address] Assigned Surgical Provider 05/09/21 10/28/22 Vicente Holder MD [address] [facility] [address] [place] [address] Assigned OBGYN Provider 01/29/22 Donya Carson MD [address] [place] [address] regional refrigerated cdl truck driver 11/01/23 Ruben Case MD [address] [place] [address] Assigned OBGYN Provider 12/10/23 Corey Esqueda PA-C [address] [facility] [address] [address] Assigned PCP 01/09/24 12/08/24 Swathi Palmer MD [address] [place] [address] Assigned Pediatric Specialist Provider 08/11/24 Regina Jones MD [address] [place] [address] Assigned PCP 12/09/24 documented as of this encounter
--- OUTSIDE RECORDS SUMMARY | 2025-01-30 22:44 | XMS_ITS | Encounter Summary ---
Author Organization [place] Address [address] [facility] [place] [address] Care Team Providers Care Lead Injection Mold Technician Name Role Phone Polina Monroy DO Primary Care Provider [phone] Kimmie Earl MD Unavailable [phone] Polina Monroy DO Unavailable [phone] Paola Blair-C Unavailable [phone] Vicente Holder MD Unavailable [phone] Donya Carson MD Unavailable [phone] Vicente Holder MD Primary Care Provider + [phone] Ruben Case MD Unavailable +[phone] Corey Esqueda PA-C Unavailable +[phone] Swathi Palmer MD Unavailable [phone] Regina Jones MD Primary Care Provid er Regina Jones MD Unavailable + [phone] Encounter Details Date Type Department Care Team (Late st Contact Info) Description 11/15/2018 [facility] Medical Advice [facility] [address] [place] [address] Polina Monroy DO [address] [place] [address] Social History Tobacco Use Types Packs/Day Years Used Date Smoking Tobacco: Former Cigarettes 0.2 5 Other Smokeless Tobacco: Former Quit: 01/13/2017 Alcohol Use Standard Drinks/Week Comments No 0 (1 standard drink = 0.6 oz pur e alcohol) PHQ-2 Answer Date Recorded PHQ-2 Score 3 06/27/2018 Comments Yes Sex and Gender Information Value Date Recorded Sex Assigned at Not on file Legal Sex Female 10:13 AM ENTRY LEVEL ACCOUNT REPRESENTATIVE Gender Identity Not on file Sexual Orientation Not on file documented as of this encounter Plan of Treatment Not on file documented as of this encounter Visit Diagnoses Not on filedocumented in this encounter Additional Health Concerns Infection Onset Date Last Indicated Resolved Time Rule Out COVID-19 07/30/2024 07/30/2024 07/30/2024 7:44 PM ENTRY LEVEL ACCOUNT REPRESENTATIVE Influenza 07/30/2024 07/30/2024 08/06/2024 11:3 9 PM ENTRY LEVEL ACCOUNT REPRESENTATIVE Assessment Noted Time PHQ-9 Depression Total Score: 13 018 4:56 PM ENTRY LEVEL ACCOUNT REPRESENTATIVE documented as of this encounter Care Teams Lead Injection Mold Technician Relationship Specialty Start Date End Date Polina Monroy DO PCP - General sketch liner 05/29/17 11/27/23 Vicente Holder MD [address] [facility] [address] [place] [address] PCP - General sketch liner 11/28/23 11/24/24 Regina Jones MD [address] [place] [address] PCP - General Internal Medicine 11/25/24 [place] [address] [place] [address] Assigned PCP 04/22/18 04/17/21 Polina Monroy DO [address] [facility] 100 [place] [address] Assigned OBGYN Provider 04/10/20 Paola Blair PA-C [address] [facility] [address] [facility] [address] [place] [address] Assigned Surgical Provider 05/09/21 10/28/22 Vicente Holder MD [address] [facility] [address] [facility] [address] [place] [address] Assigned OBGYN Provider 01/29/22 Donya Carson MD [address] [place] [address] sketch liner 11/01/23 Ruben Case MD [address] [place] [address] Assigned OBGYN Provider 12/10/23 Corey Esqueda PA-C [address] [facility] 200 [place] [address] Assigned PCP 01/09/24 12/08/24 Swathi Palmer MD [address], [place] [address] Assigned Pediatric Specialist Provider 08/11/24 Regina Jones MD [address] [place] [address] Assigned PCP 12/09/24 documented as of this encounter
--- OUTSIDE RECORDS SUMMARY | 2025-01-30 22:44 | XMS_ITS | Encounter Summary ---
Author Organization [place] Address [address] [facility] [place] [address] Care Team Providers Care School Adjustment Counselor Name Role Phone EthelsergoPolina groves DO Primary Care Provider [phone] Vicente Holder MD Unavailable [phone] Donya Carson MD Unavailable [phone] Vicente Holder MD Primary Care Provider [phone] Ruben Case MD Unavailable [phone] Corey Esqueda PA-C Unavailable [phone] Swathi Palmer MD Unavailable [phone] Regina Jones MD Primary Care Provid er Regina Jones MD Unavailable + [phone] Encounter Details Date Type Department Care Team (Late st Contact Info) Description 11/08/2023 [facility] Medical Advice [facility] [address] [place] [address] Danielle Gonsalez, RN Social History Tobacco Use Types Packs/Day Years Used Date Smoking Tobacco: Former Cigarettes 0.2 5 Vaping Device Smokeless Tobacco: Former Quit: 01/13/2017 Alcohol Use Standard Drinks/Week Comments No 0 (1 standard drink = 0.6 oz pur e alcohol) PHQ-2 Answer Date Recorded PHQ-2 Score 0 04/30/2021 [place] Depression Scale Answer Date Recorded [place] Depression Score 0 12/05/2018 Last EPDS Self Harm Result Not on file 12/05 Adolescent Education Answer Date Record ed Getting School Help Needed Not on file 03/10 Comments Yes Sex and Gender Information Value Date Recorded Sex Assigned at Not on file Legal Sex Female 10:13 AM MARINE STEWARD Gender Identity Not on file Sexual Orientation Not on file 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 file Not on file Not on file documented as of this encounter Plan of Treatment Not on file documented as of this encounter Visit Diagnoses Not on filedocumented in this encounter Additional Health Concerns Infection Onset Date Last Indicated Resolved Time Rule Out COVID-19 07/30/2024 07/30/2024 07/30/2024 7:44 PM MARINE STEWARD Influenza 07/30/2024 07/30/2024 08/06/2024 11:3 9 PM MARINE STEWARD Assessment Noted Time PHQ-9 Depression Total Score: 6 02/05/20 19 3:55 PM CDT documented as of this encounter Care Teams School Adjustment Counselor Relationship Specialty Start Date End Date Polina Monroy DO PCP - General platform builder 05/29/17 11/27/23 Vicente Holder MD [address] [address] PCP - General platform builder 11/28/23 11/24/24 Regina Jones MD [address] [place] [address] PCP - General Internal Medicine 11/25/24 Vicente Holder MD Assigned OBGYN Provider 01/29/22 Donya Carson MD [address] [place] [address] platform builder 11/01/23 Ruben Case MD [address] [place] [address] Assigned OBGYN Provider 12/10/23 Corey Esqueda PA-C [address] [facility], [address] [address] Assigned PCP 01/09/24 12/08/24 Swathi Palmer MD [address], [place] [address] Assigned Pediatric Specialist Provider 08/11/24 Regina Jones MD [address] [place] [address] Assigned PCP 12/09/24 documented as of this encounter
--- OUTSIDE RECORDS SUMMARY | 2025-01-30 22:44 | XMS_ITS | Encounter Summary ---
Author Organization [place] Address [address] [place], [place] [address]. [place] [address] Care Team Providers Care Police Magistrate Name Role Phone No Ref-Primary, Physician Primary Care Provider Polina Monroy DO Primary Care Provider [phone] Nell Stoll RN Unavailable Unavailable Kimmie Earl MD Unavailable [phone] Nadeen Light NP Unavailable [phone] Kimmie Earl MD Unavailable [phone] Polina Monroy DO Unavailable [phone] Paola Blair-C Unavailable Vicente Holder MD Unavailable [phone] Donya Carson MD Unavailable [phone] Vicente Holder MD Primary Care Provider + [phone] Ruben Case MD Unavailable [phone] Corey Esqueda-C Unavailable [phone] Swathi Palmer MD Unavailable [phone] Regina Jones MD Primary Care Provid er Regina Jones MD Unavailable + [phone] Reason for Referral * - Closed Specialty Diagnoses / Procedures Referred By Contac t Referred To Contact Diagnoses related condition, antepartum Polina Monroy DO Phone: tel: fax: Referral ID Status Reason Start Date Expiration Date Visits Re quested Visits Authorized [id number] Closed 03/21/2017 03/21/2018 1 1 Comments Screening Encounter Details Date Type Department Care Team (Late st Contact Info) Description 03/21/2017 Orders Only [facility] [place] [address] [place] [address] Polina Monroy DO [address] [place] [place] [address] related condition, antepartum (Primary Dx) Social History Tobacco Use Types Packs/Day Years Used Date Smoking Tobacco: Light Smoker Cigarettes 0.5 5 Other Smokeless Tobacco: Former Quit: 01/13/2017 Comments:vaping Alcohol Use Standard Drinks/Week Comments No 0 (1 standard drink = 0.6 oz pur e alcohol) Quit drinking 1 yr ago Comments Yes Sex and Gender Information Value Date Recorded Sex Assigned at Not on file Legal Sex Female 10:13 AM INCOME TAX MANAGER Gender Identity Not on file Sexual Orientation Not on file documented as of this encounter Plan of Treatment Scheduled Referrals Name Type Priority Associated Diagnoses Orde r Schedule MFM Genetic Counseling Referral Routine Related Condition, Antepartum 1 Occurrences starting 03/21/2017 until 03/22/2018 documented as of this encounter Results * MFM Nuchal Transluc w US Single (03/31/2017 10:47 AM CDT) Anatomical Region Laterality Modality Ultrasound 03/31/2017 9:53 AM CDT Impressions 03/31/2017 10:51 AM CDT IMPRESSION ----- Sonographic biometry disagrees with gestational age predicted by LMP. Suggest change of EDC to 10/19/2017. The fetus was too small for nuchal translucency assessment today. Narrative 03/31/2017 10:51 AM CDT NT ----- Pat. Name: TO WHALEN Study Date: 03/31/2017 9:53am Pat. NO: [id number] Referring MD: POLINA MONROY Site: [facility] Network Operations Lead: Mireille Preston RDMS : 1995 Age: 21 ----- INDICATION ----- 1st Trimester Screening. METHOD ----- Transabdominal ultrasound examination. ----- [place] . Number of fetuses: 1. DATING ----- Date Details Gest. age EDDIE LMP 12/30/2016 13 w + 0 d 10/06/2017 U/S 03/31/2017 based upon CRL 11 w + 1 d 10/19/2017 Assigned dating Dating performed on 03/31/2017, based on ultrasound (CRL) 11 w + 1 d 10/19/2017 GENERAL EVALUATION ----- Cardiac activity: present. Amniotic fluid: normal amount. BIOMETRY ----- CRL 43.7 mm 11w 1d [place] NT 1.3 mm FHR 159 bpm ANATOMY ----- The following structures were visualized: Cranium. Face: Nasal bone present. Abdominal wall. GI tract. Urogenital tract. Arms. Legs. MATERNAL STRUCTURES ----- Cervix Visualized, Appears Closed. Right Ovary Visualized. Left Ovary Visualized. Size 31.0 mm x 21.0 mm x 17.0 mm. Mean 23.0 mm. Vol 5.795 cm . RECOMMENDATION ----- We discussed the findings on today's ultrasound with the patient. A repeat ultrasound has been scheduled in 1 week to reevaluate the NT. Return to primary provider for continued care. Thank-you for the opportunity to participate in the care of this patient. If you have questions regarding today's evaluation or if we can be of further service, please contact the [facility]. anomalies may be present but not detected. Procedure Note Michael Barrow MD - 03/31/2017 NT ----- Pat. Name:Nate WHALEN Date:03/31/2017 9:53am Pat. NO: [id number] MD:POLINA MONROY Site:[facility]:Mireille Preston RDMS :1995Age:21 ----- INDICATION ----- 1st Trimester Screening. METHOD ----- Transabdominal ultrasound examination. ----- [place] . Number of fetuses: 1. DATING ----- DateDetailsGest. age EDDIE LMP 12/30/201613 w + 0 d 10/06/2017 U/S 03/31/2017based upon CRL11 w + 1 d 10/19/2017 Assigned dating Dating performed on 03/31/2017, based onultrasound (CRL) 11 w + 1 10/19/2017 GENERAL EVALUATION ----- Cardiac activity: present. Amniotic fluid: normal amount. BIOMETRY ----- CRL 43.7 mm11w 1d [place] NT 1.3 mm FHR 159 bpm ANATOMY ----- The following structures were visualized: Cranium. Face: Nasal bone present. Abdominal wall. GI tract. Urogenitaltract. Arms. Legs. MATERNAL STRUCTURES ----- Cervix Visualized, Appears Closed. Right Ovary Visualized. Left Ovary Visualized. Size 31.0 mm x 21.0 mm x 17.0mm. Mean 23.0 mm. Vol 5.795 cm . RECOMMENDATION ----- We discussed the findings on today's ultrasound with the patient. A repeat ultrasound has been scheduled in 1 week to reevaluate the NT.Return to primary provider for continued care. Thank-you for the opportunity to participate in the care of this patient.If you have questions regarding today's evaluation or if we can be offurther service, please contact the [facility]. anomalies may be present but not detected. IMPRESSION ----- Sonographic biometry disagrees with gestational age predicted by LMP.Suggest change of EDC to 10/19/2017. The fetus was too small for nuchaltranslucency assessment today. us Polina Monroy DO [facility] US ORDERABLES Chava elizabeth Result - Final documented in this encounter Visit Diagnoses Diagnosis related condition, antepartum- Primary related condition, antepartum documented in this encounter Additional Health Concerns Infection Onset Date Last Indicated Resolved Time Rule Out COVID-19 07/30/2024 07/30/2024 07/30/2024 7:44 PM INCOME TAX MANAGER Influenza 07/30/2024 07/30/2024 08/06/2024 11:3 9 PM INCOME TAX MANAGER documented as of this encounter Care Teams Police Magistrate Relationship Specialty Start Date End Date No Ref-Primary, Physician PCP - General 04/07/17 05/28/17 Polina Monroy DO PCP - General jewelry bench worker 05/29/17 11/27/23 [place] [address] [place] [address] PCP - Assigned PCP 04/22/18 08/21/18 Nadeen Light, PROJECT CONSTRUCTION ASSISTANT MANAGER [facility] [address] [place] [address] [place] [address] PCP - Assigned PCP 09/17/17 04/21/18 Vicente Holder MD [address] [address] PCP - General jewelry bench worker 11/28/23 11/24/24 Regina Jones MD [address] [place] [address] PCP - General Internal Medicine 11/25/24 Nell Stoll, RN Clinic Party Plan Sales Director Primary Care - CC 12/26/17 [place] [address] [place] [address] Assigned PCP 04/22/18 04/17/21 Polina Monroy DO [address] [address] Assigned OBGYN Provider 04/10/20 Paola Blair PA-C [address] [facility] [address] [address] Assigned Surgical Provider 05/09/21 10/28/22 Vicente Holder MD [address] [facility] [address] [place] [address] Assigned OBGYN Provider 01/29/22 Donya Carson MD [address] [place] [address] jewelry bench worker 11/01/23 Ruben Case MD [address] [place] [address] Assigned OBGYN Provider 12/10/23 Corey Esqueda PA-C [address]270 [facility] 200 [place] [address] Assigned PCP 01/09/24 12/08/24 Swathi Palmer MD [address] [place] [address] Assigned Pediatric Specialist Provider 08/11/24 Regina Jones MD [address] [place] [address] Assigned PCP 12/09/24 documented as of this encounter
--- OUTSIDE RECORDS SUMMARY | 2025-01-30 22:44 | XMS_ITS | Encounter Summary ---
Author Organization [place] Address [address] [place] [address]. [place] [address] Care Team Providers Care Weatherization Specialist Name Role Phone Donya Carson MD Unavailable [phone] Vicente Holder MD Primary Care Provider + [phone] Ruben Case MD Unavailable [phone] Corey Esqueda PA-C Unavailable [phone] Swathi Palmer MD Unavailable [phone] Regina Jones MD Primary Care Provid er Regina Jones MD Unavailable + [phone] Reason for Visit * Auth/Cert Specialty Diagnoses / Procedures Referred By Conteliza t Referred To Contact automation software engineer Procedures ZZC REVISION OF CERVIX,NON OBSTETRICAL AK CERCLAGE CERVIX DURING , VAGINAL Cerclage cervical [facility] [address] [place] [address] Phone: tel: Referral ID Status Reason Start Date Expiration Date Visits Re quested Visits Authorized [id number] 1 1 Encounter Details Date Type Department Care Team (Late st Contact Info) Description 08/28/2024 Hospital Encounter [facility] [address] [place] [address] Juancarlos Mckeon MD [address] [place] [address] Social History Tobacco Use Types Packs/Day Years Used Date Smoking Tobacco: Former Cigarettes 0.2 5 Vaping Device Passive Smoke Exposure: Never Smokeless Tobacco: Former Quit: 01/13/2017 Alcohol Use Standard Drinks/Week Comments Not Currently 0 (1 standard drink = 0.6 oz pur e alcohol) 5 drinks per year PHQ-2 Answer Date Recorded PHQ-2 Score 0 11/25/2024 [place] Depression Scale Answer Date Recorded [place] Depression Score 0 12/05/2018 Last EPDS Self [...] in an abandoned building, in an overnight mcc, or couch-surfing.) Yes 09/05/2024 Are you worried [...] on file Legal Sex Female 10:13 AM IP LITIGATION ASSOCIATE Gender Identity Not on file Sexual Orientation Not on file 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 Active Suicidal Ideation with any Methods (Not Plan) Without Intent to Act (Lifetime) No 10/09/2024 4:03 PM CDT Lamonte Boo HEAD STOCK OPERATOR 4. Active Suicidal Ideation with Some Intent to Act, Without Specific Plan (Lifetime) No 10/09/2024 4:03 PM CDT Lamonte Boo, HEAD STOCK OPERATOR 5. Active Suicidal Ideation with Specific Plan and Intent (Lifetime) No 10/09/2024 4:03 PM CDT Florencia Boo L ICSW * Question Answer Date of Assessment Author Actual Attempt (Lifetime) Yes 10/09/2024 4:03 PM CDT Florencia Boo, HEAD STOCK OPERATOR Has subject engaged in non-suicidal self-injurious behavior? (Lifetime) Yes 10/09/2024 4:03 PM CDT Florencia Boo, HEAD STOCK OPERATOR Interrupted Attempts (Lifetime) No 4:03 PM CDT Florencia Boo, HEAD STOCK OPERATOR Aborted or Self-Interrupted Attempt (Lifetime) No 10/09/2024 4:03 PM CDT Florencia Boo L ICSW Preparatory Acts or Behavior (Lifetime) No 10/09/2024 4:03 PM CDT Florencia Boo, L ICSW * Question Answer Date of Assessment Author Most Severe Ideation Rating (Lifetime) 2 10/09/2024 4:03 PM CDT Florencia Boo, L ICSW Frequency (Lifetime) 3 10/09/2024 4:03 PM C DT Rajeev Florencia, HEAD STOCK OPERATOR Duration (Lifetime) 1 10/09/2024 4:03 PM CD T Rajeev Florencia, HEAD STOCK OPERATOR Controllability (Lifetime) 2 10/09/2024 4:0 3 PM CDT Boo, Florencia, HEAD STOCK OPERATOR Deterrents (Lifetime) 1 10/09/2024 4:03 PM CDT Florencia Boo LICSW Reasons for Ideation (Lifetime) 0 4:03 PM CDT Florencia Boo LICSW documented as of this encounter Plan of [...] Time PHQ-9 Depression Total Score: 2 06/26/19 10:21 AM IP LITIGATION ASSOCIATE documented as of this encounter Care Teams Weatherization Specialist Relationship Specialty Start Date End Date Vicente Holder MD [address] [facility] [address] [place] [address] PCP - General automation software engineer 11/28/23 11/24/24 Regina Jones MD [address] [place], [place] [address] PCP - General Internal Medicine 11/25/24 Donya Carson MD [address] [place] [address] automation software engineer 11/01/23 Ruben Case MD [address] [place] [address] Assigned OBGYN Provider 12/10/23 Corey Esqueda PA-C [address] [facility] 200 [place] [address] Assigned PCP 01/09/24 12/08/24 Swathi Palmer MD [address] [place] [address] Assigned Pediatric Specialist Provider 08/11/24 Regina Jones MD [address] [place] [address] Assigned PCP 12/09/24 documented as of this encounter
--- OUTSIDE RECORDS SUMMARY | 2025-01-30 22:44 | XMS_ITS | Clinical Summary ---
Author Organization [facility] Address [address] [place] [address] Care Team Providers Care Office Administration Name Role Phone Donya Carson MD Unavailable [phone] Ruben Case MD Unavailable [phone] Swathi Palmer MD Unavailable [phone] Regina Jones MD Primary Care Provid er Regina Jones MD Unavailable [phone]- [phone] Allergies Active Allergy Reactions Criticality Noted Date Comments Bees Anaphylaxis High 02/20/2014 Latex Hives,Itching,Rash High 02/20/2014 Medications No known medications Active Problems Problem Noted Date Diagnosed Date Monochorionic diamniotic twin gestation in secon d trimester 09/06/2024 19 weeks gestation of 09/06/2024 labor in second trimester 09/06/2024 Encounter for triage in patient 025 09/05/2024 Premature cervical dilation in second trimester 08/29/2024 contractions 08/29/2024 History of stillbirth 05/15/2023 Complex cyst of right ovary 03/16/2022 Chronic fatigue 01/25/2022 Menorrhagia with regular cycle 01/25/2022 Dysmenorrhea 01/25/2022 Mild intermittent asthma without complication ABRAHAM (generalized anxiety disorder) 04/17/2018 Latex allergy 04/12/2018 Tobacco use disorder 01/27/2017 Pelvic pain in female 01/02/2017 Cannabis abuse 02/20/2014 Moderate episode of recurrent major depressive d isorder 02/20/2014 Resolved Problems Problem Noted Date Diagnosed Date Resolved Date (spontaneous vaginal delivery) 12/04/2018 01/21/2019 Encounter for triage in patient 11/19/2018 01/21/2019 Indication for care in labor or delivery 10/12/2018 01/21/2019 Indication for care in labor and delivery, antepartum 08/30/2018 01/21/2019 Prior with d emise and current in second trimester 07/17/2018 01/21/2019 care in first trimester 06/04/2018 01/21/2019 Depression 11/13/2017 01/31/2018 demise > 22 weeks, del ivered, current hospitalization 10/12/2017 01/21/2019 Indication for care in labor or delivery 10/06/2017 01/31/2018 care in third trimester 08/24/2017 01/31/2018 Back pain 02/21/2014 01/27/2017 Post concussive syndrome 02/21/2014 Overdose 02/20/2014 12/12/2016 Encounters Date Type Department Care Team Description 01/14/2025 2:45 PM CDT Office Visit [facility] [address] [place] [address] Ruben Case MD Vaginal irritation (Primary Dx) 01/14/2025 Results Follow-Up [facility] [address] [place] [address] Ruben Case MD Subj: Message about your results 01/14/2025 Travel 01/08/[address] [place] [address] Regina Jones MD Forms (Symmetry: Plan of Care) 12/11/2024 Telephone [facility] [address] [place] [address] [address] [place] [phone] Regina Jones MD Forms (Symmetry Chiropractic & Physical Therapy: Plan of Care PT Visit date 6/17/25) 11/25/2024 11:30 AM CDT Office Visit [facility] [address] [place] [address] Regina Jones MD Neck pain (Primary Dx) 11/25/2024 Travel 11/07/2024 Telephone [facility] [address] [place], [place] [address]e S 3rd Floor,[address] [facility] [address] [place] [address] Carolyn Arora MD from Last 3 Months Immunizations Immunization Administration Dates Next Due Influenza Vaccine >6 months,quad, PF 03/23/2020, 04/12/2018 TDAP (Adacel,Boostrix) 02/20/2020,10/23/2014 TDAP Vaccine (Adacel) 07/26/2017 Family History Medical History Relation Comments Anxiety Disorder Brother Depression Brother Mental Illness Brother ADHD, PTSD Substance Abuse Brother Depression Father Hypertension Father Mental Illness Father PTSD, anger issu es, axis II traits Substance Abuse Father Other - See Comments Maternal Aunt endometrios is Substance Abuse Maternal Aunt Unknown/Adopted Maternal Grandfather Anxiety Disorder Maternal Grandmother Asthma Maternal Grandmother Bipolar Disorder Maternal Grandmother Depression Maternal Grandmother Obesity Maternal Grandmother Anxiety Disorder Mother Bipolar Disorder Mother Mental Illness Mother PTSD, ADHD, pers onality d/o Other - See Comments Mother Endometrios is Schizophrenia Mother Substance Abuse Mother trying to substa in, trying to quit along with daughter Diabetes Other 1 Diabetes Other 2 Unknown/Adopted Paternal Grandfather Substance Abuse Paternal Grandmother Unknown/Adopted Paternal Grandmother Breast Cancer No family hx of Relation Status Comments Brother Alive Father Alive Maternal Aunt Alive Maternal Grandfather Alive Maternal Grandmother Alive Mother Alive Other 1 Other 2 Paternal Grandfather Paternal Grandmother Alive Social History Tobacco Use Types Packs/Day Years Used Date Smoking Tobacco: Former Cigarettes 0.2 5 Vaping Device Passive Smoke Exposure: Never Smokeless Tobacco: Former Quit: 01/13/2017 Tobacco Cessation:Counseling Given: Not Answered Alcohol Use Standard Drinks/Week Comments Not Currently 0 (1 standard drink = 0.6 oz pur e alcohol) 5 drinks per year PHQ-2 Answer Date Recorded PHQ-2 Score 0 11/25/2024 [place] Depression Scale Answer Date Recorded [place] Depression Score 0 12/05/2018 Last EPDS Self [...] in an abandoned building, in an overnight penitentiary, or couch-surfing.) Yes 09/05/2024 Are you worried [...] on file Legal Sex 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 Not on file Not on file Not on file Last Filed Vital Signs Vital Sign Reading Time Taken Comments Blood Pressure 106/74 01/14/2025 2:28 PM CDT Pulse 87 11/25/2024 11:13 AM CDT Temperature 36.7 C (98.1 F) 11/25/2024 11:13 AM CDT Respiratory Rate 16 11/25/2024 11:13 AM CDT Oxygen Saturation 100% 11/25/2024 11:13 AM CDT Inhaled Oxygen Concentration - - Weight 69.4 kg (153 lb) 01/14/2025 2:28 PM CDT Height 169.5 cm (5' 6.75) 11/25/2024 11:13 AM C DT Body Mass Index 24.14 11/25/2024 11:13 AM CDT Plan of Treatment Health Maintenance Due Date Last Done Comments ANNUAL REVIEW OF HM ORDERS 1996 ASTHMA ACTION PLAN 1996 YEARLY PREVENTIVE VISIT 1999 HEPATITIS B VACCINE (1 of 3 - 19+ 3-dose series) 2015 PNEUMOCOCCAL VACCINE: PEDIATRICS (0 to 5 YEARS) AND AT-RISK PATIENTS (6 to 49 YEARS) (1 of 2 - PCV) 2015 COVID-19 VACCINE ( - season) 2024 INFLUENZA VACCINE (#1) 2025 03/23/2020, 2017 ASTHMA CONTROL TEST 05/27/2025 11/25/2024, 11/27/2023, 03/05/2018, Additional history exists PHQ-9 05/27/2025 11/25/2024, 01/2025, 11/27/2023, Additional history exists PAP 06/26/2027 06/26/2024, 07/20, 08/04/2021, Additional history exists ADVANCE CARE PLANNING 11/26/2028 11/27/2023 DTAP/TDAP/TD VACCINE (4 - Td or Tdap) 02/19/2030 02/20/2020, 07/26/2017, 10/23/2014 ZOSTER VACCINE (1 of 2) 2046 DEPRESSION ACTION PLAN Completed 12/26/2017 HEPATITIS C SCREENING Completed 06/24/2024, 015 HIV SCREENING Completed 06/24/2024, 04/19, 02/16/2017, Additional history exists CHLAMYDIA SCREENING Discontinued 01/14/2025, 08/28/2024, 06/26/2024, Additional history exists HPV VACCINE (No Doses Required) Completed MENINGITIS VACCINE Aged Out No longer eligible based on patient's age to complete this topic Goals Goal Patient Goal Type Associated Problems Recent Progress Patient-Stated? Author MYC ECC SURG ENROLL Care Plan MyC ECC SURG ENROLL No Aure Rodriguez Procedures Procedure Name Priority Date/Time Associated Diagnosis Comments PROGESTERONE Routine 01/14/2025 2:58 PM CDT Vaginal irritation ESTRADIOL Routine 01/14/2025 2:58 PM CDT Vaginal irritation FOLLICLE STIMULATING HORMONE Routine 01/14/2025 2:58 PM CDT Vaginal irritation CHLAMYDIA TRACHOMATIS PCR Routine 01/14/2025 2:49 PM CDT Vaginal irritation NEISSERIA GONORRHOEAE PCR Routine 01/14/2025 2:49 PM CDT Vaginal irritation WET PREPARATION Routine 01/14/2025 2:49 PM CDT Vaginal irritation GYNECOLOGIC CYTOLOGY Routine 06/26/2024 10:02 AM 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, [address] [phone] * Follicle stimulating hormone (01/14/2025 2:58 PM CDT) FSH 5.4 mIU/mL 01/14/2025 9:29 PM CDT U LABORATORY Comment: 19 years and older: Follicular phase: 3.5-12.5 mIU/mL Ovulation phase: 4.7-21.5 mIU/mL Luteal phase: 1.7-7.7 mIU/mL Postmenopause: 25.8-134.8 mIU/mL Blood BLOOD SPECIMEN / Unknown Venipuncture / Unknown 01/14/2025 2:58 PM CDT 01/14/2025 2:58 PM CDT Ruben Case MD LAB - BLOOD ORDERABLES Final Result LABORATORY [facility] [place] [facility] [address] [facility], [address] [phone] * Estradiol (01/14/2025 2:58 PM CDT) Estradiol 51 pg/mL 01/14/2025 9:29 PM CDT [facility] Comment: Healthy Men: 11.3-43.2 pg/mL Healthy Postmenopausal Women: Postmenopause: <5-138 pg/mL Healthy Women: 1st trimester: 154-3243 pg/mL 2nd trimester: 1561-07909 pg/mL 3rd trimester: 8525->20114 pg/mL Healthy Women Cycle Phase: Follicular: 30.9-90.4 [...] MD LAB - BLOOD ORDERABLES Final Result [facility] LABORATORY [facility] [place] [facility] [address] [facility], [address] [place], [place] [phone] * (ABNORMAL) Wet prep - Clinic Collect [...] 2:49 PM CDT 01/14/2025 2:52 PM CDT us Ruben Case MD LAB - MICRO GENERAL OR DERABLES Final Result [facility] LABORATORY [facility] [address] [place] [address], [facility] * NEISSERIA GONORRHOEA PCR (01/14/2025 2:49 PM CDT) Neisseria gonorrhoeae Negative Negative 01/15/2025 11:53 AM CDT [facility] Comment:Negative for N. gono rrhoeae rRNA by supervisor silvering department mediated amplification. A negative result by supervisor silvering department mediated amplification does not preclude the presence [...] - MICRO GENERAL OR DERABLES Final Result [facility]AT[facility] Inf. Diseases Diag. Lab [address] [facility], [address] [place] [address], [facility] * CHLAMYDIA TRACHOMATIS PCR (01/14/2025 2:49 PM CDT) Chlamydia trachomatis Negative Negative 01/15/2025 11:53 AM CDT [facility] Comment:A negative result by supervisor silvering department mediated amplification does not preclude the presence of C. trachomatis infection because results are dependent on proper and adequate collection, absence of inhibitors and sufficient rRNA to be detected. Chlamydia trachomatis Specimen Source Cervix 01/15/2025 11:53 AM CDT [facility] Swab CERVIX UTERI STRUCTURE / Unknown Non-blood Collection / Unknown 01/14/2025 2:49 PM CDT 01/14/2025 2:52 PM CDT us Ruben Case MD LAB - MICRO GENERAL OR DERABLES Final Result [facility] Inf. Diseases Diag. Lab [address] 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 Pap tests are primarily effective for the diagnosis/prevent ion of squamous cell carcinoma, not adenocarcinoma or other cancers. 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 No 07/01/2024 11:11 AM GIMP BUTTONHOLE MACHINE OPERATOR [facility] Performing Labs The technical component of this testing was completed at [facility]. Stain controls for all stains resulted within this report have been reviewed and show appropriate reactivity. 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 However, such negative results do not rule-out acute HIV infection. If acute HIV-1 or HIV-2 infection is suspected, detection of HIV-1 or HIV-2 RNA is recommended. This result is obtained using the Shiela Elecsys HIV Duo method on the stephane [id number] immunoassay analyzer. Blood BLOOD SPECIMEN / Unknown Venipuncture / Unknown 06/24/2024 1:23 PM GIMP BUTTONHOLE MACHINE OPERATOR 06/24/2024 1:23 PM GIMP BUTTONHOLE MACHINE OPERATOR Ruben Case MD LAB - BLOOD ORDERABLES Final Result [facility] LABORAT[facility] [place] [facility] [address] [facility], [address] * Hepatitis C Screen Reflex to HCV RNA Quant and Genotype (06/24/2024 1:23 PM GIMP BUTTONHOLE MACHINE OPERATOR) Pathologist [facility] Hepatitis C Antibody Nonreactive Nonreactive 06/25/2024 3:05 AM GIMP BUTTONHOLE MACHINE OPERATOR [facility] Comment:A nonreactive screen ing test result does not exclude the possibility of exposure to or infection with HCV. Nonreactive screening test results in individuals with prior exposure to HCV may be due to antibody levels below the limit of detection of this assay or lack of reactivity to the HCV antigens used in this assay. Patients with recent HCV infections (<3 months from time of exposure) may have false- negative HCV antibody results due to the time needed for seroconversion (average of 8 to 9 weeks). Blood BLOOD SPECIMEN / Unknown Venipuncture / Unknown 06/24/2024 1:23 PM GIMP BUTTONHOLE MACHINE OPERATOR 06/24/2024 1:23 PM GIMP BUTTONHOLE MACHINE OPERATOR Ruben Case MD LAB - BLOOD ORDERABLES Final Result [facility] LABORAT[facility] [place] [facility] [address] [facility] [address], [address] [place] [address], [facility] from Last 3 Months or Most Recently Relevant to Health Maintenance Additional Health Concerns Active Problems Noted Date Diagnosed Date MyC ECC SURG ENROLL 11/24/2023 Insurance none (Work) [address] [place] [id number] [facility] Advance Directives For more information, please contact: [phone] * Full Code (Latest Code Status on File) Date Activated Date Inactivated Comments 09/06/2024 11:42 AM 09/06/2024 7:34 PM All basic a nd advanced life-sustaining interventions are performed as appropriate Question Answer Comments Code status determined by: Discussion with patie nt/ legal decision maker * Full Code Date Activated Date Inactivated Comments 09/05/2024 7:37 PM 09/06/2024 11:42 AM All basic a nd advanced life-sustaining interventions are performed as appropriate Question Answer Comments Code status determined by: Discussion with patie nt/ legal decision maker * Full Code Date Activated Date Inactivated Comments 08/29/2024 1:34 PM 08/31/2024 1:58 PM All basic an d advanced life-sustaining interventions are performed as appropriate Question Answer Comments Code status determined by: Discussion with patie nt/ legal decision maker * Full Code Date Activated Date Inactivated Comments 11/13/2017 5:40 AM 11/14/2017 4:21 PM * Full Code Date Activated Date Inactivated Comments 02/20/2014 6:46 PM 02/27/2014 2:30 PM Care Teams Office Administration Relationship Specialty Start Date End Date Regina Jones MD [address] [place] [address] PCP - General Internal Medicine 11/25/24 Donya Carson MD [address] [place] [address] trauma nurse 11/01/23 Ruben Case MD [address] [place] [address] Assigned OBGYN Provider 12/10/23 Swathi Palmer MD [address] [place], [place] [address] Assigned Pediatric Specialist Provider 08/11/24 [place] [address] [place] [address] Assigned PCP 12/09/24
--- OUTSIDE RECORDS SUMMARY | 2025-01-30 22:44 | XMS_ITS | Encounter Summary ---
Author Organization [place] Address [address] [facility] [place] [address] Care Team Providers Care Food Service Associate Name Role Phone Polina Monroy DO Primary Care Provider [phone] Kimmie Earl MD Unavailable [phone] Kimmie Earl MD Unavailable [phone] Polina Monroy DO Unavailable [phone] Paola Blair-C Unavailable Vicente Holder MD Unavailable [phone] Donya Carson MD Unavailable [phone] Vicente Holder MD Primary Care Provider + [phone] Ruben Case MD Unavailable [phone] Corey Esqueda-C Unavailable [phone] Swathi Palmer MD Unavailable [phone] Regina Jones MD Primary Care Provid er Regina Jones MD Unavailable + [phone] Reason for Referral * Diagnostic Imaging Ultrasound - Closed Specialty Diagnoses / Procedures Referred By Dwight t Referred To Contact Diagnoses related condition, antepartum Procedures [facility] US Comprehensive Single Polina Monroy DO Phone: tel: fax: Referral ID Status Reason Start Date Expiration Date Visits Re quested Visits Authorized [id number] Closed 06/27/2018 06/27/2019 1 1 MANAGER Encounter Details Date Type Department Care Team (Late st Contact Info) Description 06/27/2018 Transcribe Orders [facility] [place] [address] [place] [address] Polina Monroy DO [address] [place], [place] [id number] related condition, antepartum (Primary Dx) Social History Tobacco Use Types Packs/Day Years Used Date Smoking Tobacco: Former Cigarettes 0.2 5 Other Smokeless Tobacco: Former Quit: 01/13/2017 Comments:Vapes Alcohol Use Standard Drinks/Week Comments No 0 (1 standard drink = 0.6 oz pur e alcohol) PHQ-2 Answer Date Recorded PHQ-2 Score 3 06/27/2018 Comments Yes Sex and Gender Information Value Date Recorded Sex Assigned at Not on file Legal Sex Female 10:13 AM CELL MANAGER Gender Identity Not on file Sexual Orientation Not on file documented as of this encounter Plan of Treatment Not on file documented as of this encounter Results * [facility] (07/17/2018 11:00 AM CELL MANAGER) Anatomical Region Laterality Modality Ultrasound 07/17/2018 10:1 2 AM CELL MANAGER Impressions 07/17/2018 4:56 PM CELL MANAGER IMPRESSION ----- 1) [place] intrauterine at 18 weeks 5 days gestational age. 2) None of the anomalies commonly detected by ultrasound were evident in the detailed anatomic survey as described above. 3) Growth parameters and estimated weight were consistent with established dates. 4) The amniotic fluid volume appeared normal. 5) Normal activity for gestational age. 6) On transabdominal imaging the cervix appears long and closed. Narrative 07/17/2018 4:56 PM CELL MANAGER Comprehensive ----- Pat. Name: TO WHALEN Study Date: 07/17/2018 10:12am Pat. NO: [id number] Referring MD: POLINA MONROY Site: [facility] Stone Engraver: Hali Wallis RDMS : 1995 Age: 22 ----- INDICATION ----- History of unexplained IUFD at 39 weeks, Low risk NIPT METHOD ----- Transabdominal ultrasound examination. View: Sufficient ----- [place] . Number of fetuses: 1 DATING ----- Date Details Gest. age EDDIE LMP 02/26/2018 20 w + 1 d 12/03/2018 Prior assessment 04/20/2018 GA: 6 w + 1 d 18 w + 5 d 12/13/2018 U/S 07/17/2018 based upon AC, BPD, Femur, HC 19 w + 2 d 12/09/2018 Assigned dating Dating performed on 07/17/2018, based on the prior assessment (on 04/20/2018) 18 w + 5 d 12/13/2018 GENERAL EVALUATION ----- Cardiac activity present. FHR 153 bpm. movements present. Presentation Variable. Placenta anterior, no previa . Umbilical cord 3 vessel cord. Amniotic fluid MVP 3.9 cm. BIOMETRY ----- Main Biometry: BPD 43.4 mm 19w 1d Hadlock OFD 58.4 mm 19w 1d Nicolaides HC 164.6 mm 19w 1d Hadlock Cerebellum tr 19.0 mm 18w 4d Nicolaides AC 139.6 mm 19w 2d Hadlock Femur 30.5 mm 19w 3d Hadlock Humerus 30.4 mm 20w 0d Raine Weight Calculation: EFW 289 g EFW (lb,oz) 0 lb 10 oz EFW by Hadlock ([id number]) Head / Face / Neck Biometry: Deployment Specialist 4.6 mm CM 4.6 mm Nasal bone 6.1 mm Nuchal fold 4.7 mm ANATOMY ----- The following structures appear normal: Head / Neck Cranium. Head size. Head shape. Lateral ventricles. Choroid plexus. Midline falx. Cavum septi pellucidi. Cerebellum. Cisterna magna. Parenchyma. Thalami. Vermis. Neck. Nuchal fold. Face Lips. Profile. Nose. Maxilla. Mandible. Orbits. Lens. Heart / Thorax 4-chamber view. RVOT view. LVOT view. Situs. Aortic arch view. Bicaval view. Ductal arch view. Superior vena cava. Inferior vena cava. 3-vessel view. 7-dsvfbv-rpbyjll view. Cardiac position. Cardiac size. Cardiac rhythm. Right lung. Left lung. Diaphragm. Abdomen Abdominal wall. Cord insertion. Stomach. Kidneys. Bladder. Liver. Bowel. Genitals. Spine Cervical spine. Thoracic spine. Lumbar spine. Sacral spine. Extremities / Skeleton Right hand. Left hand. Right foot. Left foot. Gender: female. MATERNAL STRUCTURES ----- Cervix Visualized Appearance: Appears Closed Cervical length 50.5 mm Right Ovary Not visualized Left Ovary Not visualized RECOMMENDATION ----- Thank-you for referring your patient for a targeted ultrasound due to an unexplained term IUFD at 39 weeks. I reviewed the patient's screening results. She had cell-free DNA screening showing the expected amounts of chromosomes 21, 18 & 13. I discussed the findings on today's ultrasound with the patient and her partner. I reviewed the limitations of ultrasound. We discussed the availability of amniocentesis although this was not specifically recommended today. The patient declined all further aneuploidy testing. We discussed the plan for surveillance given her history of a term IUFD. She is aware that this history is not currently an indication for a late or early term delivery. However, she does have significant anxiety related to her prior loss. Our current plan for surveillance is growth US every 4 weeks, weekly BPPs at 30 weeks, increasing to twice weekly at 36 weeks at her request. If no complications arise, I recommend delivery at 39 weeks 0 days. Follow up is scheduled for US surveillance here at [facility]. Return to primary provider for continued care. If you have questions regarding today's evaluation or if we can be of further service, please contact the [facility]. anomalies may be present but not detected Procedure Note Juancarlos Mckeon MD - 07/17/2018 Comprehensive ----- Pat. Name:Nate WHALEN Date:07/17/2018 10:12am Pat. 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 View: Sufficient ----- [place] . Number of fetuses: 1 DATING ----- DateDetailsGest. age EDDIE LMP 02/26/201820 w + 1 d 12/03/2018 Prior assessment 04/20/2018 GA: 6 w +1 d18 w + 5 d 12/13/2018 U/S 07/17/2018based upon AC, BPD, Femur, HC19 w + 2 d 12/09/2018 Assigned dating Dating performed on 07/17/2018, based onthe prior assessment (on 04/20/2018) 18 w + 5 12/13/2018 GENERAL EVALUATION ----- Cardiac activity present. FHR 153 bpm. movements present. Presentation Variable. Placenta anterior, no previa . Umbilical cord 3 vessel cord. Amniotic fluid MVP 3.9 cm. BIOMETRY ----- Main Biometry: BPD 43.4 mm19w 1d Hadlock OFD 58.4 mm19w 1d Nicolaides HC 164.6 mm19w 1d Hadlock Cerebellum tr 19.0 mm18w 4d Nicolaides AC 139.6 mm19w 2d Hadlock Femur 30.5 mm19w 3d Hadlock Humerus 30.4 mm20w 0d Raine Weight Calculation: EFW 289 g EFW (lb,oz) 0 lb 10 oz EFW by Hadlock ([id number]) Head / Face / Neck Biometry: Deployment Specialist 4.6 mm CM 4.6 mm Nasal bone 6.1 mm Nuchal fold 4.7 mm ANATOMY ----- The following structures appear normal: Head / Neck Cranium. Head size. Head shape.Lateral ventricles. Choroid plexus. Midline falx. Cavum septi pellucidi.Cerebellum. Cisterna magna. Parenchyma. Thalami. Vermis. Neck. Nuchal fold. Face Lips. Profile. Nose. Maxilla.Mandible. Orbits. Lens. Heart / Thorax 4-chamber view. RVOT view. LVOT view.Situs. Aortic arch view. Bicaval view. Ductal arch view. Superior venacava. Inferior vena cava. 3-vessel view. 7-sbedhv-lvectcs view.Cardiac position. Cardiac size. Cardiac rhythm. Right lung. Left lung.Diaphragm. Abdomen Abdominal wall. Cord insertion.Stomach. Kidneys. Bladder. Liver. Bowel. Genitals. Spine Cervical spine. Thoracic spine.Lumbar spine. Sacral spine. Extremities / Skeleton Right hand. Left hand. Right foot. Leftfoot. Gender: female. MATERNAL STRUCTURES ----- Cervix Visualized Appearance: Appears Closed Cervical length 50.5 mm Right Ovary Not visualized Left Ovary Not visualized RECOMMENDATION ----- Thank-you for referring your patient for a targeted ultrasound due to anunexplained term IUFD at 39 weeks. I reviewed the patient's screeningresults. She had cell-free DNA screening showing the expected amounts ofchromosomes 21, 18 & 13. I discussed the findings on today's ultrasound with the patient and herpartner. I reviewed the limitations of ultrasound. We discussed theavailability of amniocentesis although this was not specifically recommended today. The patient declinedall further aneuploidy testing. We discussed the plan for surveillance given her history of a term IUFD.She is aware that this history is not currently an indication for a latepreterm or early term delivery. However, she does have significant anxiety related to her prior loss. Ourcurrent plan for surveillance is growth US every 4 weeks, weekly BPPs at30 weeks, increasing to twice weekly at 36 weeks at her request. If no complications arise, Irecommend delivery at 39 weeks 0 days. Follow up is scheduled for USsurveillance here at [facility]. Return to primary provider for continued care. If you have questions regarding today's evaluation or if we can be offurther service, please contact the [facility]. anomalies may be present but not detected IMPRESSION ----- 1) [place] intrauterine at 18 weeks 5 days gestational age. 2) None of the anomalies commonly detected by ultrasound were evident inthe detailed anatomic survey as described above. 3) Growth parameters and estimated weight were consistent withestablished dates. 4) The amniotic fluid volume appeared normal. 5) Normal activity for gestational age. 6) On transabdominal imaging the cervix appears long and closed. us Polina Monroy DO G [facility] US ORDERABLES Chava elizabeth Result - Final documented in this encounter Visit Diagnoses Diagnosis related condition, antepartum- Primary related condition, antepartum documented in this encounter Additional Health Concerns Infection Onset Date Last Indicated Resolved Time Rule Out COVID-19 07/30/2024 07/30/2024 07/30/2024 7:44 PM CELL MANAGER Influenza 07/30/2024 07/30/2024 08/06/2024 11:3 9 PM CELL MANAGER Assessment Noted Time PHQ-9 Depression Total Score: 13 06/04/ 018 4:56 PM CELL MANAGER documented as of this encounter Care Teams Food Service Associate Relationship Specialty Start Date End Date Polina Monroy DO PCP - General wind turbine design engineer 05/29/17 11/27/23 [place] [address] [place] [address] PCP - Assigned PCP 04/22/18 08/21/18 Vicente Holder MD [address] [address] PCP - General wind turbine design engineer 11/28/23 11/24/24 Regina Jones MD [address] [place], [place] [id number] PCP - General Internal Medicine 11/25/24 [place] [address] [place] [address] Assigned PCP 04/22/18 04/17/21 Polina Monroy DO [address] [address] Assigned OBGYN Provider 04/10/20 Paola Blair PA-C [address] [place] [address] Assigned Surgical Provider 05/09/21 10/28/22 Vicente Holder MD [address] [place] [address] Assigned OBGYN Provider 01/29/22 Donya Carson MD [address] [place] [address] wind turbine design engineer 11/01/23 Ruben Case MD [address] [place] [address] Assigned OBGYN Provider 12/10/23 Corey Esqueda PA-C [address] [facility], [address] [address] Assigned PCP 01/09/24 12/08/24 Swathi Palmer MD [address], [place] [address] Assigned Pediatric Specialist Provider 08/11/24 Regina Jones MD [address] [place] [address] Assigned PCP 12/09/24 documented as of this encounter
--- OUTSIDE RECORDS SUMMARY | 2025-01-30 22:44 | XMS_ITS | Clinical Summary ---
Author Organization [facility] Address [address] [place] [address] Care Team Providers Care Assembler Dc Field Yoke Name Role Phone Pcp, No Primary Care Provider Unavailabl e Allergies Active Allergy Reactions Criticality Noted Date Comments Hymenoptera Allergenic Extract Edema 02/19 Latex Hives 02/19/2014 Medications naproxen (NAPROSYN) 500 mg tablet Take 500 mg by mouth 2 times daily with meals. Active albuterol HFA (PROAIR HFA) 90 mcg/actuation inhalerIndicat ions:Wheezing Inhale 1-2 Puffs by mouth every 4 hours if needed. 1 Inhaler 7 Active HYDROXYZINE HCL ORAL Active buPROPion (WELLBUTRIN XL) 150 mg Extended-Relea se tablet Take 150 mg by mouth. 8 Active EPINEPHrine (EPIPEN) 0.3 mg/0.3 mL injection Inject 0.3 mg intramuscular. 4 Active escitalopram oxalate (LEXAPRO) 20 mg tablet Take 20 mg by mouth. 8 Active hydrOXYzine HCl (ATARAX) 25 mg tablet Take 25-50 mg by mouth. 8 Active melatonin 10 mg tab Take 10 mg by mouth. 8 Active vits96/iron fum/folic ( VITAMIN WITH FOLIC ACID) tablet Take 1 tablet by mouth. 8 Active amoxicillin 500 mg capsuleIndicat ions:Acute bacterial infection of both middle ears Take 1 Capsule by mouth two times daily. 5 Active albuterol HFA 90 mcg/actuation inhalerIndicat ions:Medicatio n refill Inhale 1-2 Puffs by mouth every 4 hours if needed for Shortness Of Breath or Wheezing. 1 Each 5 Active EPINEPHrine (EpiPen 2-Santi) 0.3 mg/0.3 mL auto-injectorI ndications:Med ication refill Inject 0.3 mg (1 Pen) intramuscular each time if needed for Allergic Reaction. 2 Each 5 Active Active Problems Problem Noted Date Diagnosed Date MDD (major depressive disord er), recurrent episode, moderate 02/20/2014 Cannabis abuse 02/20/2014 Overdose of antidepressant 02/19/2014 Encounters Date Type Department Care Team Description 11/04/2024 Refill [facility] [address] [place] [phone] Neeraj Kirby PA Refill Request 11/04/2024 Telephone [facility] [address] [place] [address] [place] [phone] Jeovany Connell PA Questions; Epididymitis 11/02/[address] [facility] [address] [place] [phone] Pooja Cartwright MD Results 11/01/2024 5:30 PM CDT Office Visit [address] [address] Jeovany Connell PA Throat Problem; Ear Problem; Gi Problem 11/01/2024 Travel from Last 3 Months Social History Tobacco Use Types Packs/Day Years Used Date Smoking Tobacco: Former Cigarettes Smokeless Tobacco: Current Tobacco Cessation:Ready to Q uit: Not Asked; Counseling Given: Not Answered Comments:vape Alcohol Use Standard Drinks/Week Comments No 0 (1 standard drink = 0.6 oz pur e alcohol) Comments No Sex and Gender Information Value Date Recorded Sex Assigned at Not on file Legal Sex Female 7:00 AM PRESCHOOL TEACHER'S ASSISTANT Gender Identity Not on file Sexual Orientation Not on file Obstetrics History Last Filed Vital Signs Vital Sign Reading Time Taken Comments Blood Pressure 131/72 11/01/2024 5:41 PM CDT Pulse 75 11/01/2024 5:41 PM CDT Temperature 37.1 C (98.8 F) 11/01/2024 5:41 PM CDT Respiratory Rate 18 11/01/2024 5:41 PM CDT Oxygen Saturation 99% 11/01/2024 5:41 PM CDT Inhaled Oxygen Concentration - - Weight 59 kg (130 lb) 09/24/2013 8:42 PM CDT Height - - Body Mass Index - - Plan of Treatment Health Maintenance Due Date Last Done Comments Tetanus booster 2007 Depression screening for age 12+ 2008 HIV for age 15-65 2011 BMI (ht and wt on same day) for age 18+ 2014 Hepatitis C screening for ag e 18-79 2014 Hepatitis B series for 19+ ( 1 of 3 - 19+ 3-dose series) 2015 COVID-19 vaccine series (2023- season) 2024 Pap test for age 21-65 08/04/2024 , 08/04/2021 Influenza Vaccine (#1) 2025 Pneumococcal series for age 6-49 Aged Out No longer eligible b ased on patient's age to complete this topic Procedures Procedure Name Priority Date/Time Associated Diagnosis Comments POCT INFECTIOUS MONONUCLEOSIS SCREEN (QUEST) Routine 11/01/2024 6:34 PM CDT Acute pharyngitis, unspecified etiology Cervical lymphadenitis Shaking chills THROAT RAPID STREP ONLY CLINIC Routine 11/01/2024 6:34 PM CDT Acute pharyngitis, unspecified etiology Cervical lymphadenitis Shaking chills SD BLOOD COUNT COMPLETE AUTO&AUTO DIFRNTL WBC Routine 11/01/2024 6:33 PM CDT Acute pharyngitis, unspecified etiology Cervical lymphadenitis Shaking chills STREP A PCR Routine 11/01/2024 6:30 PM CDT Acute pharyngitis, unspecified etiology Cervical lymphadenitis Shaking chills HPV HIGH RISK Routine 08/04/2021 1:45 PM PRESCHOOL TEACHER'S ASSISTANT from Last 3 Months or Most Recently Relevant to Health Maintenance Results * MONO HETEROPHILE (Quest) [[id number]] (11/01/2024 6:34 PM CDT) [facility] POC INFECTIOUS MONONUCLEOSIS SCREEN NEGATIVE NEGATIVE [facility] (U Blood BLOOD SPECIMEN / Unknown 11/01/2024 6:34 PM CDT 11/01/2024 6:34 PM CDT us Jeovany Valadez LABORATORY Final Result Performing Organization Address [facility]/ZIP Co de Phone Number [facility] [address] [place] [address], [facility] (U [address] [place] [address] * RAPID STREP [[id number]] (11/01/2024 6:34 PM CDT) [facility] POC, GROUP A STREP NOT DETECTED NOT DETECTED [facility] ( Comment: The [place] [employer] recommends that a throat culture be performed if a rapid group A streptococcus assay yields a negative result. [employer] recommends Streptococcus, Group A culture. Throat SPECIMEN FROM THROAT / Unknown 11/01/2024 6:34 PM CDT 11/01/2024 6:34 PM CDT us Jeovany Valadez MICROBIOLOGY Final Result Performing Organization Address [facility]/ZIP Co de Phone Number [facility] [address] [place] [address], [facility] ([place] [address] [place] [address] * CBC & DIFF [[id number]] (11/01/2024 6:33 PM CDT) [facility] WHITE BLOOD CELL COUNT 7.9 3.8 - 10.8 Thousand/u L [facility] (U RED BLOOD CELL COUNT 4.48 3.80 - 5.10 Million/uL [facility] (U HEMOGLOBIN 12.8 11.7 - 15.5 g/dL [facility] (U HEMATOCRIT 39.3 35.0 - 45.0 % [facility] (U MCV 87.7 80.0 - 100.0 fL [facility] (U MCH 28.6 27.0 - 33.0 pg [facility] (U MCHC 32.6 32.0 - 36.0 g/dL [facility] (U Comment: For adults, a slight decrease in the calculated MCHC value (in the range of 30 to 32 g/dL) is most likely not clinically significant; however, it should be interpreted with caution in correlation with other red cell parameters and the patient's clinical condition. RDW 12.2 11.0 - 15.0 % [facility] (U PLATELET COUNT 252 140 - 400 Thousand/u L [facility] (U MPV 8.6 7.5 - 12.5 fL [facility] (U ABSOLUTE NEUTROPHILS 4,361 1,500 - 7,800 cells/uL [facility] (U ABSOLUTE LYMPHOCYTES 2,670 850 - 3,900 cells/uL [facility] (U ABSOLUTE MONOCYTES 679 200 - 950 cells/uL [facility] (U ABSOLUTE EOSINOPHILS 158 15 - 500 cells/uL [facility] (U ABSOLUTE BASOPHILS 32 0 - 200 cells/uL [facility] (U NEUTROPHILS 55.2 % [facility] (U LYMPHOCYTES 33.8 % [facility] (U MONOCYTES 8.6 % [facility] (U EOSINOPHILS 2.0 % [facility] (U BASOPHILS 0.4 % [facility] (U Blood BLOOD SPECIMEN / Unknown 11/01/2024 6:33 PM CDT 11/01/2024 6:34 PM CDT us Jeovany Valadez HEMATOLOGY Final Result [facility] [address] [place] [address], [facility] ([facility] [address] [address] [place] [address] * STREP A PCR [[id number]] (11/01/2024 6:30 PM CDT) GROUP A STREP Negative 11/02/2024 5:50 AM CDT [facility] Throat SPECIMEN FROM THROAT / Unknown Non-Blood / Unknown 11/01/2024 6:30 PM CDT 11/01/2024 6:42 PM CDT us Jeovany Valadez MICROBIOLOGY Final Result Performing Organization Address [facility]/ZIP Co de Phone Number [facility] [address] [place] [address], * HPV HIGH RISK (08/04/2021 1:45 PM PRESCHOOL TEACHER'S ASSISTANT) TYPE 16 Negative Negative 08/06/2021 4:51 PM PRESCHOOL TEACHER'S ASSISTANT [facility] TYPE 18 Negative Negative 08/06/2021 4:51 PM PRESCHOOL TEACHER'S ASSISTANT [facility] OTHER HIGH RISK TYPES Negative Negative 08/06/2021 4:51 PM PRESCHOOL TEACHER'S ASSISTANT [facility] Other (Cervical/Vagina l) 08/04/2021 1:45 PM PRESCHOOL TEACHER'S ASSISTANT 08/05/2021 9:44 AM PRESCHOOL TEACHER'S ASSISTANT Narrative [facility] - 08/06/2021 4:51 PM PRESCHOOL TEACHER'S ASSISTANT HPV types 16, 18, 31, 33, 35, 39, 45, 51, 52, 56, 58, 59, 66 and 68 DNA were undetectable or below the pre-set threshold. Methodology: Shiela Mk 4800 HPV Test us Amelie Israel MD MICROBIOLOGY Final Resu lt [facility] [address] [place] [address], from Last 3 Months or Most Recently Relevant to Health Maintenance Insurance [facility] [id number] [place] [id number] [employer] Advance Directives * Full Code (Latest Code Status on File) Date Activated Date Inactivated Comments 02/19/2014 7:38 PM 02/20/2014 7:12 PM Care Teams Assembler Dc Field Yoke Relationship Specialty Start Date End Date Pcp, No . PCP - General 11/01/24
--- OUTSIDE RECORDS SUMMARY | 2025-01-30 22:44 | XMS_ITS | Encounter Summary ---
Author Organization [facility] Address [address] [place] [address] Care Team Providers Care Wheel Shop Supervisor Name Role Phone Polina Monroy DO Primary Care Provider [phone] Kimmie Earl MD Unavailable [phone] Nadeen Light NP Unavailable [phone] Kimmie Earl MD Unavailable [phone] Polina Monroy DO Unavailable [phone] Paola Blair PA-C Unavailable Vicente Holder MD Unavailable [phone] Donya Carson MD Unavailable [phone] Vicente Holder MD Primary Care Provider [phone] Ruben Case MD Unavailable [phone] Corey Esqueda-C Unavailable [phone] Swathi Palmer MD Unavailable [phone] Regina Jones MD Primary Care Provid er Regina Jones MD Unavailable + [phone] Encounter Details Date Type Department Care Team (Late st Contact Info) Description 04/17/2018 [facility] [id number] [place] [phone] [place] [address] [place] [address] Social History Tobacco Use Types Packs/Day Years Used Date Smoking Tobacco: Former Cigarettes 0.2 5 Other Smokeless Tobacco: Former Quit: 01/13/2017 Comments:Vapes Alcohol Use Standard Drinks/Week Comments No 0 (1 standard drink = 0.6 oz pur e alcohol) Comments No Sex and Gender Information Value Date Recorded Sex Assigned at Not on file Legal Sex Female 10:13 AM CH[employer] LINK FENCE INST[employer]ER Gender Identity Not on file Sexual Orientation Not on file documented as of this encounter Plan of Treatment Not on file documented as of this encounter Visit Diagnoses Not on filedocumented in this encounter Additional Health Concerns Infection Onset Date Last Indicated Resolved Time Rule Out COVID-19 07/30/2024 07/30/2024 07/30/2024 7:44 PM [employer] IN[employer]ER Influenza 07/30/2024 07/30/2024 08/06/2024 11:3 9 PM [employer] INST[employer]ER Assessment Noted Time PHQ-9 Depression Total Score: 22 018 4:41 PM CDT documented as of this encounter Care Teams Wheel Shop Supervisor Relationship Specialty Start Date End Date Polina Monroy DO PCP - General equipment lead 05/29/17 11/27/23 [place] [address] [place] [address] PCP - Assigned PCP 04/22/18 08/21/18 Nadeen Light NP [address] [facility] [place] [address] PCP - Assigned PCP 09/17/17 04/21/18 Vicente Holder MD [address] [address] PCP - General equipment lead 11/28/23 11/24/24 Regina Jones MD [address] [facility] [address] PCP - General Internal Medicine 11/25/24 [place] [address] [place] [address] Assigned PCP 04/22/18 04/17/21 Polina Monroy DO [address] [address] Assigned OBGYN Provider 04/10/20 Paola Blair PA-C [address] [place], [place] [address] Assigned Surgical Provider 05/09/21 10/28/22 Vicente Holder MD [address] [facility] [address] [place] [address] Assigned OBGYN Provider 01/29/22 Donya Carson MD [address] [place] [address] equipment lead 11/01/23 Ruben Case MD [address] [place] [address] Assigned OBGYN Provider 12/10/23 Corey Esqueda PA-C [address] [facility], [address] [address] Assigned PCP 01/09/24 12/08/24 Swathi Palmer MD [address] [place] [address] Assigned Pediatric Specialist Provider 08/11/24 Regina Jones MD [address] [place] [address] Assigned PCP 12/09/24 documented as of this encounter
[2025-01-30 22:51] VITALS: BP 137/88; PULSE 75; RESP 16; TEMP 36.4; O2SAT 100; BMI 23.5
--- NOTE | 2025-01-30 23:30 | CRLHL7_ITS ---
For Patients: As a result of the Century Cures Act, medical imaging exams and procedure reports are released immediately into your electronic medical record. You may view this report before your referring provider. If you have questions, please contact your health care provider. INDICATION: Chest fullness TECHNIQUE: CT chest without contrast. COMPARISON: None. FINDINGS: Lungs and pleura: No suspicious nodules or infiltrates. No pleural effusions, pleural thickening, or pneumothorax. Heart and vasculature: Heart size is normal. Thoracic aorta and pulmonary artery are normal in caliber. Lymph nodes/mediastinum: No mediastinal, hilar, or axillary adenopathy. Chest wall: No masses. Upper abdomen: No significant findings. Bones: Unremarkable for age. IMPRESSION: No acute intrathoracic abnormality. Please note that all CT scans at this facility use dose modulation, iterative reconstruction, and/or weight-based dosing when appropriate to reduce radiation dose to as low as reasonably achievable. Dictated by Kelvin Acosta MD @ 01/31/2025 12:02:56 AM (Electronically Signed)
--- NOTE | 2025-01-30 23:53 | ED.GENADULT ---
HPI - General Adult General Date Seen: 01/30/25 Chief complaint: Chest Pain Stated complaint: chest pain Time Seen by Provider: 01/30/25 22:58 History of Present Illness HPI narrative: Patient is a 29-year-old young woman here with her for evaluation of a sensation of chest fullness and pressure which she says is been present for several months now. She does tell me that she has been seen at the [facility] ER 3 times for this over the past 2-3 months, she says the only test she has ever had done as an EKG and she feels generally like people dismiss her symptoms. She has seen her primary doctor as well for these symptoms but no additional testing was done. It has been recommended that she be treated for anxiety, she was on sertraline but she says she discontinued that because she and her are trying to conceive. She did lose twins in August which she acknowledged has been a stressor. She has a therapist who she works with. Her concern is that she has some kind of mass or tumor in her chest, she says that this sensation is always there, she has early satiety and is worried that her remaining children will lose their mother if she has cancer. She does vape nicotine, she denies other substances. Related Data Home Medications ?Medication ?Instructions ?Recorded ?Confirmed etonogestrel 0.12 mg-ethinyl 1 vag ring vaginal Q4W 02/28/22 estradiol 0.015 mg/24 hr vaginal ring (EluRyng) fluticasone propionate 50 1 spray intranasal BID 02/28/22 mcg/actuation nasal spray,suspension hydrocortisone 1 % topical 1 applic topical BID 02/28/22 ointment (Anti-Itch (hydrocortisone)) Previous Rx's ?Medication ?Instructions ?Recorded sertraline 100 mg tablet 100 mg PO DAILY #30 tabs 03/30/22 sertraline 25 mg tablet 25 mg PO DAILY #30 tabs 01/31/25 Allergies Allergy/AdvReac Type Severity Reaction Status Date / Time No Known Drug Allergies Allergy Verified 01/30/25 23:02 Review of Systems Status of ROS: Reports: 6 or more systems reviewed and unremarkable except as noted in History and below Exam Narrative: Exam Narrative: Vital signs reviewed In general, alert, nontoxic breathing easily. Head: Normocephalic, atraumatic. Eyes: Sclera clear. Pupils equal and reactive. ENT: Mucous membranes moist. Neck: Supple without adenopathy. Heart: Regular rate and rhythm without murmur. Lungs: Clear. No increased work of breathing, crackles or wheezes. Abdomen: Soft, nontender to palpation. Extremities: Well perfused, pulses intact. No significant edema. Neurologic: Alert, conversant. Speech fluent, face symmetric. Moves all extremities equally. Skin: Warm, dry well perfused. Affect: Normal. Tearful at times. Const: Vital Signs, click to edit/add: Vital Signs - 24 hr 01/30/25 22:51 Temperature 97.6 F Pulse Rate [Right Pulse Oximeter] 75 Respiratory Rate 16 Blood Pressure [Ri ght Upper Arm] 137/88 Pulse Oximetry 100 Oxygen Delivery Me thod Room Air Course Course ED Course: Patient presents with a fairly constant sensation of chest fullness or pressure over the past number of months. Note that these symptoms onset would coincide fairly neatly after loss of her twins, and I suspect that there is a strong component of anxiety to this. Discussed that it is generally much healthier to have mental health issues controlled with medications while and verses avoiding medications because of concerns about how they will affect the . Also discussed that nicotine is generally not a good idea while as well. She maintains that if she had imaging that did not show any kind of tumor, she would feel completely reassured and would feel comfortable at that time treating this more as anxiety. Discussed that often he even with reassurance of imaging the tendency might be to come up with other serious problems that could be going on, I do think she needs medication management for anxiety and have encouraged her to see her primary doctor to discuss that further. For today, will get a CT scan with contrast in an effort to reassure her that something serious is not being ignored. CT report reviewed, read as negative by Radiology. I gave her copy of the report, discussed that there are no abnormal findings, no evidence of mass or other structure that would be causing her chest feel full. Strongly suspect that this is anxiety related, she does want me to prescribe sertraline so that she can restart that. She is working with her counselor but says she has dropped down to every other week and thinks maybe she should start going once a week again. She was tearful talking about her miscarriage, I thin that is contributing significantly to her difficulties right now. Strongly encouraged her to discontinue vaping as well. Return any time if she feels she is not managing, otherwise will have her restart the sertraline and then follow up with primary care in the next couple of weeks. Vital Signs Vital signs: Initial Vital Signs Temperature 97.6 F 01/30/25 22:51 Temperature Source Temporal Artery Scan 01/30/25 22:51 Pulse Rate 75 01/30/25 22:51 Pulse Rhythm Regular 01/30/25 22:51 Pulse Strength 3+ Normal 01/30/25 22:51 Respiratory Rate 16 01/30/25 22:51 Blood Pressure 137/88 01/30/25 22:51 Blood Pressure Mean 104 01/30/25 22:51 Blood Pressure Position Sitting 01/30/25 22:51 Pulse Oximetry 100 01/30/25 22:51 Oxygen Delivery Method Room Air 01/30/25 22:51 Vital Signs Temperature 97.6 F 01/30/25 22:51 Pulse Rate 75 01/30/25 22:51 Respiratory Rate 16 01/30/25 22:51 Blood Pressure 137/88 01/30/25 22:51 Pulse Oximetry 100 01/30/25 22:51 Oxygen Delivery Method Room Air 01/30/25 22:51 Temperature 97.6 F 01/30/25 22:51 Pulse Rate 75 01/30/25 22:51 Respiratory Rate 16 01/30/25 22:51 Blood Pressure 137/88 01/30/25 22:51 Pulse Oximetry 100 01/30/25 22:51 Oxygen Delivery Method Room Air 01/30/25 22:51 Discharge Plan Discharge Clinical Impression: Anxiety, Miscarried within last 12 months Patient Disposition: Home, Self-Care Condition: Stable Additional Instructions: I prescribed sertraline, 25 mg tablets for you. I would recommend that we have you start at 25 mg once a day for the 1st week and then increase to 50 mg once a day after that. You have previously been on a higher dose, but because you are not used to it we need to start lower and gradually increase. These medicines take time to be effective, so do not worry if you are not feeling better right away. Please make an appointment to see your primary doctor in the next couple of weeks to see how you are doing. Continue with your therapist, with increased frequency if you feel that would be helpful. Return at any time if you feel you are not managing well. Prescriptions: New sertraline 25 mg tablet 25 mg PO DAILY Qty: 30 2RF Rx Instructions: Take 1 tablet daily for 7 days then 2 tablets daily thereafter No Action etonogestrel-ethinyl estradiol [EluRyng] 0.12-0.015 mg/24 hr ring 1 vag ring vaginal Q4W Rx Instructions: leave in place for 3 weeks of a 4-week cycle fluticasone propionate 50 mcg/actuation spray,suspension 1 spray intranasal BID Rx Instructions: administer into each nostril hydrocortisone [Anti-Itch (HC)] 1 % ointment 1 applic topical BID sertraline 100 mg tablet 100 mg PO DAILY Qty: 30 0RF Follow Up/Referrals: Provider,Not a Local [Primary Care Provider, Family Practice] Stand Alone Forms: [employer] Info Instructions
== END 2025-01-31 00:25 | disposition home or self-care (01) ==
PROVIDERS: Emergency Provider Emergency Medicine
DX: F41.9 Anxiety disorder, unspecified (principal)
CPT/HCPCS: 71250; 93005; 99284